=== PATIENT | female | born 1960 | race Caucasian/White ===

== ENCOUNTER 2023-04-29 08:17 | Outpatient (OUT) | payer BC, SELFPAY ==
[2023-04-29 08:43] LABS: Basophils Absolute Auto 0.1 10^3/uL (0.0-0.1); Basophils Percent Auto 0.7 % (0.2-2.0); Eosinophils Absolute Auto 0.3 10^3/uL (0.0-0.7); Eosinophils Percent Auto 3.5 % (0.9-7.0); Hematocrit 41.3 % (36.0-48.0); Hemoglobin 13.1 g/dL (12.0-16.0); Immature Granulocytes Abs Auto 0.03 10^3/uL (0.00-0.03); Immature Granulocytes Pct Auto 0.3 % (0.0-0.5); Lymphocytes Absolute Auto 2.1 10^3/uL (1.2-3.8); Mean Corpuscular HGB Conc 31.7 g/dL (29.9-35.2); Mean Corpuscular Hemoglobin 28.3 pg (26.7-34.0); Mean Corpuscular Volume 89.2 fL (81.0-99.0); Mean Platelet Volume 10.4 fL (9.5-13.5); Monocytes Absolute Auto 0.7 10^3/uL (0.3-0.8); Neutrophils Absolute Auto 5.6 10^3/uL (1.4-6.5); Neutrophils Percent Auto 63.5 % (43.0-75.0); Platelet Count 324 10^3/uL (150-450); Red Blood Count 4.63 10^6/uL (4.20-5.40); Red Cell Distribution Width 14.3 % (11.0-15.0); White Blood Count 8.8 10^3/uL (4.0-11.0)
[2023-04-29 10:01] LABS: Estimated Average Glucose 117 mg/dL; Glycohemoglobin A1C 5.7 % (4.5-6.2)
[2023-04-29 11:08] LABS: Alanine Aminotransferase 22 U/L (14-59); Albumin Globulin Ratio 0.8; Albumin Level 3.1 g/dL (3.4-5.0); Alkaline Phosphatase 102 U/L (46-116); Anion Gap 10.6; Aspartate Amino Transferase 11 U/L (15-37); BUN Creatinine Ratio 14.1; Bilirubin Total 0.4 mg/dL (0.2-1.0); Calcium 9.5 mg/dL (8.5-10.1); Carbon Dioxide 29.6 mmol/L (21.0-32.0); Chloride 105 mmol/L (98-107); Chol HDL Ratio 2.9; Cholesterol 217 mg/dL (<=200); Estimated GFR (African America >60 (>=60); Estimated GFR (Non-African Ame >60 (>=60); Free T3 2.19 pg/mL (2.18-3.98); Globulin 4.1 g/dL; Glucose 91 mg/dL (74-106); HDL Cholesterol 75 mg/dL (40-60); Potassium 4.2 mmol/L (3.5-5.1); Sodium 141 mmol/L (136-145); Thyroid Stimulating Hormone 3.259 uIU/mL (0.358-3.740); Total Protein 7.2 g/dL (6.4-8.2); Triglycerides 113 mg/dL (<=150); VLDL CHOLESTEROL 22.6 mg/dL
[2023-04-29 12:36] LABS: Free T4 1.19 ng/dL (0.76-1.46)
== END 2023-04-29 08:18 | disposition home or self-care (01) ==
LOC: LAB 08:17
PROVIDERS: PCP Family Medicine; Visit Provider Family Medicine
DX: Z00.00 Encounter for general adult medical examination without abnormal findings (principal); E03.9 Hypothyroidism, unspecified
CPT/HCPCS: 36415; 80053; 80061; 83036; 84439; 84443; 84481; 85025

== ENCOUNTER 2023-08-16 15:02 | Outpatient (OUT) | payer OTHER, SELFPAY ==
--- OUTSIDE RECORDS SUMMARY | 2023-08-16 15:20 | XMS_ITS | CCD ---
Author Organization [facility] Care Team Providers Care Pipe Finishing Supervisor Name Role Phone DR ANNIE MENJIVAR Primary Care Unavailable OTTO, DR VALENCIA Admitting Unavailable OTTO, DR VALENCIA Attending Unavailable OTTO, DR VALENCIA Consulting Unavailable OTTO, DR VALENCIA Primary Care Unavailable OTTO, DR VALENCIA Admitting Unavailable OTTO, DR VALENCIA Attending Unavailable WEST, DR ALAN Solis Consulting Unavailable OTTO, DR VALENCIA Primary Care Unavailable OTTO, DR VALENCIA Admitting Unavailable OTTO, DR VALENCIA Attending Unavailable Annie Menjivar MD Primary Care Provider Annie Menjivar MD Primary Care Provider [phone] Annie Menjivar MD Primary Care Provider Unknown, Referring Provider Unavailable Unav ailable Unavailable Unavailable Dr. Carie Negron Referring Unavaila ble Dr. Carie Negron Attending Unavaila ble UNKNOWN, PCP Primary Care Unavailable ANNIE MENJIVAR Primary Care Unavailable ANNIE MENJIVAR Primary Care Unavailable ALIS RODRIGUEZ Attending Unavailable ANNIE MENJIVAR Primary Care Unavailable TAYLER BA Attending Unava ilable ANNIE MENJIVAR Primary Care Unavailable TAYLER BA Referring Unava ilable Annie Menjivar MD Primary Care Provider [phone] Carie Negron MD Unavailable [phone] CARIE NEGRON Attending Unavailable ANNIE MENJIVAR Primary Care Unavailable Allergies Allergy Classification Reported Allergen(s) Allergy Type Date of Onset Reaction(s) Facility (19 sources) Penicillins; Translations: [PENICILLINS] Drug Allergy 03-03-2012 Rash [facility] (1 source) Penicillins; Translations: [Penicillins] Allergy to drug (finding) Rash -[facility] DO Work Phone: Medications Current Medications Medication Drug Class(es) Dates Sig (Normalized) Sig (Original) apixaban 5 mg oral tablet (19 sources) Factor Xa Inhibitor Start: 07-19-2023 End: 07-18-2024 take 1 tablet by mouth twice daily apixaban (Eliquis) 5 mg tablet Indications: Persistent atrial fibrillation (CMS/HCC) Take 1 tablet (5 mg) by mouth 2 times a day. 180 tablet 3 07/19/2023 07/18/2024 Active Start: 07-02-2022 End: 07-19-2023 take 1 tablet by mouth twice daily apixaban (ELIQUIS) 5 mg tab(s) Indications: High risk medication use , Persistent atrial fibrillation (HCC) , Atrial flutter, unspecified type (HCC) Take 1 tablet by mouth twice daily. 180 tablet 3 07/13/2022 Active Comment on above: Take 1 tablet by krys th twice daily. calcium acetate (17 sources) take 1200 mg by mout h once daily CALCIUM ACETATE ORAL Take 1,200 mg by mouth once daily. 0 Active CALCIUM ACETATE ORAL Take by mouth. 0 Active Comment on above: Take by mouth. estradiol 1 mg oral tablet (18 sources) Estrogen take 1 tablet by mouth once daily estradiol (Estrace) 1 mg tablet Take 1 tablet (1 mg) by mouth once daily. 0 Active Comment on above: Take 1 mg by mouth o nce daily. flecainide acetate 150 mg oral tablet (20 sources) Antiarrhythmic Start: End: take 1 tablet by mouth twice daily flecainide (Tambocor) 150 mg tablet Indications: Persistent atrial fibrillation (CMS/HCC) Take 1 tablet (150 mg) by mouth 2 times a day. 180 tablet 3 07/19/2023 07/18/2024 Active Start: 07-13-2022 take 1 tablet by krys th twice daily flecainide (TAMBOCOR) 100 mg tablet Indications: Persistent atrial fibrillation (HCC) Take 1 tablet by mouth twice daily. 180 tablet 3 07/13/2022 Active Start: 05-14-2021 End: 07-19-2023 flecainide (TAMBOCOR) 150 mg tablet Indications: Persistent atrial fibrillation (HCC) TAKE 1 TABLET TWICE A DAY 180 tablet 3 04/27/2022 Active Start: 09-23-2020 End: 05-14-2021 take 1 tablet by mouth twice daily flecainide (TAMBOCOR) 100 mg tablet Indications: Persistent atrial fibrillation (HCC) Take 1 tablet by mouth twice daily. 180 tablet 3 09/23/2020 05/14/2021 Discontinued take 1 tablet by krys th once daily Flecainide Acetate 150 MG Oral Tablet TAKE 1 TABLET EVERY 12 HOURS DAILY. Quantity: 180 Refills: 3 Ordered: 30-Dec-2022 Luz Maria SANCHEZ, Carie Active Comment on above: Take 1 tablet by krys th twice daily. TAKE 1 TABLET TWICE A DAY levothyroxine sodium 0.1 mg oral tablet (20 sources) l-Thyroxine Start: End: 4 take 1 tablet by mouth once daily, then take 0.5 tablet by mouth every week, then take 7.5 tablets by mouth every week levothyroxine (SYNTHROID) 100 mcg tablet Indications: Other specified hypothyroidism Take 1 tablet by mouth once daily. Plus an extra half tablet once a week (so total 7.5 tablets per week) 96 tablet 3 04/15/2023 04/14/2024 Active Start: 12-25-2020 End: 04-17-2022 take 1 tablet by mouth once daily, then take 0.5 tablet by mouth every week, then take 7.5 tablets by mouth every week levothyroxine (SYNTHROID) 100 mcg tablet Indications: Other specified hypothyroidism Take 1 tablet by mouth once daily. Plus an extra half tablet once a week (so total 7.5 tablets per week) 96 tablet 3 04/17/2021 Active levothyroxine (S ynthroid, Levoxyl) 150 mcg tablet Take 1 tablet (150 mcg) by mouth. On sundays 0 Active Comment on above: Take 1 tablet by krys th once daily. Plus an extra half tablet once a week (so total 7.5 tablets per week) Take 1 tablet by krys th once daily. multivitamin tablet (1 source) take 1 tablet by mouth once daily multivitamin tablet Take 1 tablet by mouth once daily. 0 Active Completed/Discontinued Medications Medication Drug Class(es) Dates Sig (Normalized) Sig (Original) atenolol 25 mg oral tablet (19 sources) beta-Adrenergic Wendy Start: 12-30-2022 take 1 tablet by mouth once daily Atenolol 25 MG Oral Tablet TAKE 1 TABLET DAILY. Quantity: 90 Refills: 3 Ordered: 30-Dec-2022 Carie Negron MD Start : 30-Dec-2022 Active dose decreased Start: 03-04-2021 End: 04-27-2022 atenolol (TENORMIN) 25 mg ta blet Indications: Palpitations TAKE 1 TABLET TWICE A DAY 180 tablet 3 04/27/2022 Active take 0.5 tablet by m out once daily atenolol (Tenormin) 25 mg tablet Take 0.5 tablets (12.5 mg) by mouth once daily. 0 Active Comment on above: Take 1 tablet by krys th twice daily. TAKE 1 TABLET TWICE A DAY Calcium 1537-3670 MG-UNIT CHEW (1 source) Calcium 1200-100 0 MG-UNIT CHEW Take 1 tablet daily Quantity: 0 Refills: 0 Ordered: 30-Dec-2022 DO Active cranberry fruit extract (CRANBERRY EXTRACT ORAL) (16 sources) cranberry fruit extract (CRANBERRY EXTRACT ORAL) Take by mouth. 0 Active Comment on above: Take by mouth. glucosamine HCl/chondroitin melendrez (GLUCOSAMINE-CHONDROIT IN ORAL) (16 sources) take 1 tablet by mouth once daily glucosamine HCl/chondroitin melendrez (GLUCOSAMINE-CHONDROI TIN ORAL) Take 1 tablet by mouth once daily. 0 Active Comment on above: Take 1 tablet by krys th once daily. iron bis-glycinat/vit C/FA/B12 (GENTLE IRON ORAL) (16 sources) iron bis-glycina t/vit C/FA/B12 (GENTLE IRON ORAL) Take by mouth. 0 Active Comment on above: Take by mouth. lactobacillus acidophilus [id number] unt oral capsule (16 sources) take 1 capsule by mouth once daily Lactobacillus acidophilus (PROBIOTIC) 10 billion cell cap Take 1 capsule by mouth once daily. 0 Active Comment on above: Take 1 capsule by mo [facility] once daily. Magnesium (16 sources) take 400 mg by mouth once daily MAGNESIUM ORAL Take 400 mg by mouth once daily. 0 Active Comment on above: Take 400 mg by mouth once daily. Multi Vitamin TABS (1 source) Multi Vitamin TA BS TAKE 1 TABLET DAILY. Quantity: 0 Refills: 0 Ordered: 30-Dec-2022 DO Active Probiotic CAPS (1 source) Probiotic CAPS T KIMMIE 1 CAPSULE Daily Quantity: 0 Refills: 0 Ordered: 30-Dec-2022 DO Active rivaroxaban 20 mg oral tablet (9 sources) Factor Xa Inhibitor Start: 1 End: 2 take 1 tablet by mouth once daily rivaroxaban (XARELTO) 20 mg tablet Indications: Persistent atrial fibrillation (HCC) Take 1 tablet by mouth once daily. 30 tablet 3 05/14/2021 Active Comment on above: Take 1 tablet by krys once daily. saccharomyces boulardii 250 mg oral capsule (1 source) End: 4 take 1 capsule by mouth once daily saccharomyces boulardii (Florastor) 250 mg capsule Take 1 capsule by mouth once daily. 0 07/19/2023 Discontinued (Therapy completed) Vitamin B Complex (16 sources) vitamin B comple x (B COMPLEX ORAL) Take by mouth. 0 Active Comment on above: Take by mouth. Zinc (16 sources) take 50 mg by mouth once daily ZINC ORAL Take 50 mg by mouth once daily. 0 Active Comment on above: Take 50 mg by mouth once daily. Problems Active Problems Problem Classification Problem Date Documented Da te Episodic/Chronic Cardiac dysrhythmias (10 sources) Persistent atrial fibrillation; Translations: [Other persistent atrial fibrillation] Onset: 01-21-2023 Resolved: 07-19-2023 Chronic Cardiac dysrhythmias (19 sources) Palpitations; Translations: [Palpitations] Onset: 02-27-2019 02-27-2019 Episodic Other aftercare (1 source) Patient encounter status; Translations: [Encounter for therapeutic drug level monitoring] Episodic Other aftercare (2 sources) Taking high risk medication; Translations: [Other halfway (current) drug therapy] Episodic Other aftercare (3 sources) Drug therapy finding; Translations: [Long-term (current) use of anticoagulants] Onset: 01-21-2023 07-19-2023 Episodic Other aftercare (2 sources) bed bug exterminator (current) use of anticoagulants; Translations: [bed bug exterminator (current) use of anticoagulants] Onset: 01-21-2023 Episodic Other nutritional; endocrine; and metabolic disorders (16 sources) Obese class I; Translations: [Obesity, unspecified] Onset: 02-27-2019 02-27-2019 Chronic Other nutritional; endocrine; and metabolic disorders (2 sources) Body mass index 30+ - obesity; Translations: [Body mass index (BMI) 37.0-37.9, adult] Onset: 07-19-2023 07-19-2023 Chronic Other nutritional; endocrine; and metabolic disorders (2 sources) Body mass index (BMI) 37.0-37.9, adult; Translations: [Body mass index (BMI) 37.0-37.9, adult] Onset: 07-19-2023 Chronic Residual codes; unclassified (2 sources) Sleep apnea; Translations: [Unspecified sleep apnea] Onset: 01-21-2023 01-21-2023 Chronic Residual codes; unclassified (1 source) Obstructive sleep apnea syndrome; Translations: [Obstructive sleep apnea (adult) (pediatric)] 07-19-2023 Chronic Residual codes; unclassified (2 sources) Obstructive sleep apnea (adult) (pediatric); Translations: [Obstructive sleep apnea (adult) (pediatric)] Onset: 01-21-2023 Chronic Residual codes; unclassified (2 sources) Never smoked tobacco; Translations: [Other specified health status] Onset: 07-19-2023 07-19-2023 Episodic Residual codes; unclassified (2 sources) Other specified health status; Translations: [Other specified health status] Onset: 07-19-2023 Episodic Thyroid disorders (3 sources) Hypothyroidism; Translations: [Other specified hypothyroidism] Onset: 07-09-2022 Chronic Unclassified (3 sources) Other persistent atrial fibrillation; Translations: [Persistent atrial fibrillation (HCC)] Onset: 07-09-2022 Past or Other Problems Problem Classification Problem Date Documented Da te Episodic/Chronic Nonspecific chest pain (16 sources) Precordial pain; Translations: [Precordial pain] Onset: 02-27-2019 02-27-2019 Episodic Other aftercare (1 source) Other halfway (current) drug therapy; Translations: [High risk medication use] Onset: 07-09-2022 Episodic Other lower respiratory disease (4 sources) Cough; Translations: [COUGH] Onset: 12-09-2020 Episodic Other nutritional; endocrine; and metabolic disorders (2 sources) Obesity; Translations: [Obesity, unspecified] Onset: 01-21-2023 Resolved: 07-19-2023 07-19-2023 Chronic Unclassified (1 source) Never smoked tobacco; Translations: [Never a smoker] Results Test Name Value Interpretation Reference Range Facility ECG 12 [place] 07-19-2023 Sinus bradycardia wi th heart rate of 54 [facility] Work Phone: CNPNon 02-28-2023 CNPN Telephone (HEMAMN) NATALIE,ESE Elise ([id number]) 1960 F BMD Date Time Provider Department 02/28/23 DAMARI HERNANDEZ HEMAMN During your visit today, we recorded the following information about you: Damari Hernandez RN 02/28/2023 10:40 AM Signed Called patient to discuss tissue typing. She did not answer, Left message with contact information for her to return call . Damari Hernandez RN Allergies As of Date: 02/28/2023 Noted Allergy Reaction PENICILLINS 03/03/2012 2 - Rash Date Reviewed: 04/15/2022 Reviewed by: Rohit Anguiano, CT - Fully Assessed Prescriptions as of 02/28/2023 - flecainide (TAMBOCOR) 100 mg tablet Take 1 tablet by mouth twice daily. - apixaban (ELIQUIS) 5 mg tab(s) Take 1 tablet by mouth twice daily. - apixaban (ELIQUIS) 5 mg tab(s) - levothyroxine (SYNTHROID) 100 mcg tablet Take 1 tablet by mouth once daily. Plus an extra half tablet once a week (so total 7.5 tablets per week) - atenolol (TENORMIN) 25 mg tablet TAKE 1 TABLET TWICE A DAY - Lactobacillus acidophilus (PROBIOTIC) 10 billion cell cap Take 1 capsule by mouth once daily. - ZINC ORAL Take 50 mg by mouth once daily. - MAGNESIUM ORAL Take 400 mg by mouth once daily. - glucosamine HCl/chondroitin melendrez (GLUCOSAMINE-CHONDROIT IN ORAL) Take 1 tablet by mouth once daily. - vitamin B complex (B COMPLEX ORAL) Take by mouth. - CALCIUM ACETATE ORAL Take by mouth. - cranberry fruit extract (CRANBERRY EXTRACT ORAL) Take by mouth. - iron bis-glycinat/vit C/FA/B12 (GENTLE IRON ORAL) Take by mouth. - estradiol (ESTRACE) 1 mg tablet Take 1 mg by mouth once daily. Problem List As Of Date 02/28/2023 Noted Resolved Precordial pain [R07.2] 02/27/2019 Palpitations [R00.2] 02/27/2019 Obesity, Class I, BMI 30-34.9 [E66.9] 02/27/2019 Encounter Status:Closed by DAMARI HERNANDEZ on 02/28/23 [facility] Telephone (HEMAMN) ESE ESTRADA ([id number]) 1960 F BMD Date Time Provider Department 02/28/23 DAMARI HERNANDEZ HEM During your visit today, we recorded the following information about you: Damari Hernandez RN 02/28/2023 11:18 AM Signed Spoke with potential HPC donor,Ese Estrada, by telephone on February 28, 2023. She is willing to have blood drawn to determine HLA match potential for recipient, Dedra Damon. Patient is on flecanide and a blood thinner. Will defer testing as a donor per NMDP guidelines. All questions answered at this time. Ese Estrada was instructed to call Damari Hernandez RN , pager [phone] with any further questions or concerns. Damari Hernandez RN Allergies As of Date: 02/28/2023 Noted Allergy Reaction PENICILLINS 03/03/2012 2 - Rash Date Reviewed: 04/15/2022 Reviewed by: Rohit Anguiano, CT - Fully Assessed Prescriptions as of 02/28/2023 - flecainide (TAMBOCOR) 100 mg tablet Take 1 tablet by mouth twice daily. - apixaban (ELIQUIS) 5 mg tab(s) Take 1 tablet by mouth twice daily. - apixaban (ELIQUIS) 5 mg tab(s) - levothyroxine (SYNTHROID) 100 mcg tablet Take 1 tablet by mouth once daily. Plus an extra half tablet once a week (so total 7.5 tablets per week) - atenolol (TENORMIN) 25 mg tablet TAKE 1 TABLET TWICE A DAY - Lactobacillus acidophilus (PROBIOTIC) 10 billion cell cap Take 1 capsule by mouth once daily. - ZINC ORAL Take 50 mg by mouth once daily. - MAGNESIUM ORAL Take 400 mg by mouth once daily. - glucosamine HCl/chondroitin melendrez (GLUCOSAMINE-CHONDROIT IN ORAL) Take 1 tablet by mouth once daily. - vitamin B complex (B COMPLEX ORAL) Take by mouth. - CALCIUM ACETATE ORAL Take by mouth. - cranberry fruit extract (CRANBERRY EXTRACT ORAL) Take by mouth. - iron bis-glycinat/vit C/FA/B12 (GENTLE IRON ORAL) Take by mouth. - estradiol (ESTRACE) 1 mg tablet Take 1 mg by mouth once daily. Problem List As Of Date 02/28/2023 Noted Resolved Precordial pain [R07.2] 02/27/2019 Palpitations [R00.2] 02/27/2019 Obesity, Class I, BMI 30-34.9 [E66.9] 02/27/2019 Encounter Status:Closed by DAMARI HERNANDEZ on 02/28/23 Normal [facility] BI MAMMOGRAM SCREENING TOMOS YNTHESIS BILATERALon 01-10-2023 BI MAMMOGRAM SCREENING TOMOSYNTHESIS BILATERAL This is a summary report. The complete report is available in the patient's medical record. If you cannot access the medical record, please contact the sending organization for a detailed fax or copy. EXAMINATION: BI MAMMOGRAM SCREENING TOMOSYNTHESIS BILATERAL CLINICAL HISTORY: screening COMPARISON: None available. RESULT: 3-D tomosynthesis imaging of the bilateral breast(s) was performed. Density: Scattered fibroglandular density [2] There are no suspicious masses or asymmetries, areas of architectural distortion or suspicious areas of microcalcifications. IMPRESSION: BIRADS 1 - Negative Recommended follow-up: Routine Screening Mamm Board Certified Radiologists. Accredited by the ACR and FDA. MAMMOGRAPHY IS VERY IMPORTANT TO YOUR HEALTH. THE [place] GUIDELINES RECOMMEND THAT WOMEN 40 YEARS OF AGE AND OLDER SHOULD HAVE A MAMMOGRAM EVERY YEAR. A REMINDER LETTER WILL BE SENT AT THE APPROPRIATE TIME. THIS FACILITY UTILIZES A REMINDER SYSTEM TO ENSURE ALL PATIENTS RECEIVE REMINDER NOTIFICATIONS AT THE APPROPRIATE TIME BASED ON THE RECOMMENDATIONS OF THIS EXAM. THIS INCLUDES REMINDERS FOR ROUTINE SCREENING MAMMOGRAMS, DIAGNOSTIC MAMMOGRAMS IN WHICH THE PATIENT IS ASKED TO RETURN FOR ADDITIONAL VIEWS, OR OTHER BREAST IMAGING INTERVENTIONS WHEN APPROPRIATE. THE PATIENT WILL BE PLACED IN THE APPROPRIATE REMINDER SYSTEM INCLUDING A REMINDER AT THE APPROPRIATE TIME FOR ANY PENDING ADDITIONAL VIEWS. ELECTRONICALLY SIGNED BY: Devin Banerjee MD Normal Not Available Comment on above: Order Comment: Last mammogram 2020 [facility]. Requests order to [facility]. Us or spot compression prn Office Visit (Cardiology)on 12-30-2022 Follow-up visit Diagnoses/Problems Assessed Paroxysmal atrial fibrillation (427.31) (I48.0) Class 2 obesity with body mass index (BMI) of 37.0 to 37.9 in adult (278.00,V85.37) (E66.9,Z68.37) Never a smoker Sleep apnea (780.57) (G47.30) Anticoagulated (V58.61) (Z79.01) Orders Class 2 obesity with body mass index (BMI) of 37.0 to 37.9 in adult Healthy Weight Tips; Status:Complete - Retrospective Authorization; Done: [id number] Some eating tips that can help you lose weight.; Status:Complete - Retrospective Authorization; Done: [id number] Paroxysmal atrial fibrillation Start: Atenolol 25 MG Oral Tablet; TAKE 1 TABLET DAILY IO EKG Electrocardiogram- 12 Lead; Status:Complete; Done: [id number] Renew: Eliquis 5 MG Oral Tablet; Take 1 tablet twice daily Renew: Flecainide Acetate 150 MG Oral Tablet; TAKE 1 TABLET EVERY 12 HOURS DAILY Sleep apnea Adult Sleep Medicine Referral Evaluation and Treatment Evaluate AND Treat Status: Hold For - Scheduling,Retrospecti ve Authorization Requested for: [id number] SocHx: Never a smoker Tobacco Use Screening; Status:Complete; Done: [id number] Unlinked Stop: Atenolol 25 MG Oral Tablet Patient Instructions Please bring all medicines, vitamins, and herbal supplements with you when you come to the office. Prescriptions will not be filled unless you are compliant with your follow up appointments or have a follow up appointment scheduled as per instruction of your physician. Refills should be requested at the time of your visit. Follow up in 6 months home sleep study refills to [facility] Chief Complaint ESE ESTRADA is being seen for an initial evaluation of atrial fibrillation. History of Present Illness Patient is here for cardiovascular evaluation for atrial fibrillation. Patient report history of atrial fibrillation over the last 2 years. She was evaluated at the [facility]. Her noninvasive assessment including an echocardiogram appears reassuring. Patient underwent cardioversion on 2 prior occasion. Her atrial fibrillation was treated with flecainide and low-dose atenolol. She was advised by her shipwright helper at [facility] to increase flecainide temporarily to 150 and then to decrease it back to 100 mg. She had done that over the last 4 months and had 2 episodes of breakthrough arrhythmia. The patient was advised to have an ablation but the patient is reluctant. She has been started recently on anticoagulation. Her CHADS2 vascular score is 1. Patient reports symptoms suspicious of sleep apnea. She is Functional class I. She denies chest pain or lightheadedness. Assessment 1. Persistent recurrent atrial fibrillation treated with flecainide 100 mg twice daily but this was just increased 250 twice daily due to recurrence 2. Mild sinus bradycardia to flecainide and atenolol 3. Obesity 4. Probable sleep apnea based on symptoms 5. No history of coronary artery disease, LV systolic dysfunction or valvular abnormality Plan 1. I advised the patient to continue flecainide 150 twice daily but advised her to reduce atenolol to 25 once daily 2. We discussed at great length the natural history of atrial fibrillation. If continue to have breakthrough arrhythmia next step would be trial of Rythmol or ablation 3. I counseled her regarding the link between atrial fibrillation, obesity and sleep apnea 4. I recommended outpatient sleep evaluation 5. We discussed anticoagulation at length. I told her for the near future we will stay with Eliquis however if she had stable rhythm in the next 3 to 6 months we may consider switching to aspirin considering low CHADS2 vascular score 6 I advised her to notify me change in cardiac status or symptoms Surgical History Problems History of Appendectomy History of Cardioversion History of section 2 Denied: History of Complete colonoscopy History of Hernia repair History of Hysterectomy History of Tonsillectomy History of Uterine nerve ablation Current Meds Medication NameInstruction Atenolol 25 MG Oral TabletTAKE 1 TABLET BY MOUTH twice a DAY Calcium 2410-2885 MG-UNIT CHEWTake 1 tablet daily Eliquis 5 MG Oral TabletTake 1 tablet twice daily Estradiol 1 MG Oral TabletTAKE 1 TABLET DAILY. Flecainide Acetate 150 MG Oral TabletTAKE 1 TABLET EVERY 12 HOURS DAILY. Multi Vitamin TABSTAKE 1 TABLET DAILY. Probiotic CAPSTAKE 1 CAPSULE Daily Synthroid 100 MCG Oral TabletTAKE 1 TABLET DAILY. Synthroid 150 MCG Oral Tablet1 tablet on Sundays Allergies Medication Penicillins Allergy; Rash; Recorded By: Deloris France; 12/30/2022 1:54:02 PM Family History Mother Family history of congestive heart failure (V17.49) (Z82.49) Family history of diabetes mellitus (V18.0) (Z83.3) Family history of hyperthyroidism (V18.19) (Z83.49) Family history of Stroke syndrome Father Family history of lung cancer (V16.1) (Z80.1) Sister Family history of hypothyroidism (V18.19) (Z83.49) Family history of lymphoma (V16.7) (Z80.7) Family (more content not included)... Normal [employer] Tobacco Screening.on 023 Tobacco use status [facility] b) No -[facility] [employer] DO Work Phone: Tobacco Screening. Yes [facility] [employer] DO Work Phone: CNPMarlin 12-24-2022 [facility] Telephone (CARDAV) NATALIE,ESE Elise ([id number]) 1960 F Date Time Provider Department 12/24/22 JOHN WALSH During your visit today, we recorded the following information about you: Kathryn Paul 12/24/2022 10:33 AM Signed ----- Message from ADA Pereira sent at 12/23/2022 2:50 PM EDT ----- Nico afternoon ----- Message ----- From: Tayler Ba MD Sent: 12/23/2022 1:32 PM EDT To: ADA Pereira EPS LAB PROCEDURE REQUEST: Cardioversion AND/or LAUREN PATIENT: Ese Estrada Request Placed by: Tayler Barboza MD Requesting Physician: CT Procedure Physician: Gonzales jeffrey MD Date of Last HANDP? Procedure Requested: DCC Indications / Dx for procedure: Atrial Fibrillation Anticoagulation Status: Eliquis (apixaban) Type of bed needed: 2 HR RECOVERY IN I/O ROOM This upcoming Tuesday with any available provider Kathryn Paul 12/24/2022 10:35 AM Signed Called and scheduled patient for her cardioversion with Dr Walsh for December 27 11:30am arrival time. Patient notified to be npo after midnight and to have a driver medic and report to first floor admitting to register. Follow up scheduled. Lab ordered. Allergies As of Date: 12/24/2022 Noted Allergy Reaction PENICILLINS 03/03/2012 2 - Rash Date Reviewed: 04/15/2022 Reviewed by: Rohit Anguiano CT - Fully Assessed Prescriptions as of 12/24/2022 - flecainide (TAMBOCOR) 100 mg tablet Take 1 tablet by mouth twice daily. - apixaban (ELIQUIS) 5 mg tab(s) Take 1 tablet by mouth twice daily. - apixaban (ELIQUIS) 5 mg tab(s) - levothyroxine (SYNTHROID) 100 mcg tablet Take 1 tablet by mouth once daily. Plus an extra half tablet once a week (so total 7.5 tablets per week) - atenolol (TENORMIN) 25 mg tablet TAKE 1 TABLET TWICE A DAY - Lactobacillus acidophilus (PROBIOTIC) 10 billion cell cap Take 1 capsule by mouth once daily. - ZINC ORAL Take 50 mg by mouth once daily. - MAGNESIUM ORAL Take 400 mg by mouth once daily. - glucosamine HCl/chondroitin melendrez (GLUCOSAMINE-CHONDROIT IN ORAL) Take 1 tablet by mouth once daily. - vitamin B complex (B COMPLEX ORAL) Take by mouth. - CALCIUM ACETATE ORAL Take by mouth. - cranberry fruit extract (CRANBERRY EXTRACT ORAL) Take by mouth. - iron bis-glycinat/vit C/FA/B12 (GENTLE IRON ORAL) Take by mouth. - estradiol (ESTRACE) 1 mg tablet Take 1 mg by mouth once daily. Problem List As Of Date 12/24/2022 Noted Resolved Precordial pain [R07.2] 02/27/2019 Palpitations [R00.2] 02/27/2019 Obesity, Class I, BMI 30-34.9 [E66.9] 02/27/2019 Encounter Status:Closed by KATHRYN PAUL on 12/24/22 [facility] 12-23-2022 GRETAN Telephone (CAEPAV) CLOSE,ANI ([id number]) 1960 F Date Time Provider Department 12/23/22 TAYLER BA During your visit today, we recorded the following information about you: Kathryn Robert, YANETH 12/23/2022 11:43 AM Signed The pt is calling. Pre her cardio mobile she is in A-Fib and she has been since Tuesday. She is symptomatic with it, she can fee her heart racing and has some sob. if she is just sitting it is manageable but when she tried to do anything it seems to ramp up . She takes Flecainide 100 mg one tablet twice a day and Atenolol 25 mg one every evening. She did take an extra Atenolol this morning, states you are aware she normally only takes one every evening although the sig has her taking one pill twice a day. In the past you have had her increase her Flecainide and she normally converts after being on a higher dose. Please advise. You may call her back at her home number and may leave a detailed message. Please do not send the response via my chart. Please route your response back to P [facility] CARD NURSE Kathryn Mccann RN 12/23/2022 4:[address] Markham Please convey following She may take up to 150 mg BID of flecainide. WIll tentatively request cardioverison for Tuesday - if she returns to sinus can cancel. Thanks I called and notified the pt of the above instructions, she will call us back if she converts back to NSR. Allergies As of Date: 12/23/2022 Noted Allergy Reaction PENICILLINS 03/03/2012 2 - Rash Date Reviewed: 04/15/2022 Reviewed by: Rohit Anguiano CT - Fully Assessed Reason for Visit: A-fib [167] Prescriptions as of 01/29/2023 - flecainide (TAMBOCOR) 100 mg tablet Take 1 tablet by mouth twice daily. - apixaban (ELIQUIS) 5 mg tab(s) Take 1 tablet by mouth twice daily. - apixaban (ELIQUIS) 5 mg tab(s) - levothyroxine (SYNTHROID) 100 mcg tablet Take 1 tablet by mouth once daily. Plus an extra half tablet once a week (so total 7.5 tablets per week) - atenolol (TENORMIN) 25 mg tablet TAKE 1 TABLET TWICE A DAY - Lactobacillus acidophilus (PROBIOTIC) 10 billion cell cap Take 1 capsule by mouth once daily. - ZINC ORAL Take 50 mg by mouth once daily. - MAGNESIUM ORAL Take 400 mg by mouth once daily. - glucosamine HCl/chondroitin melendrez (GLUCOSAMINE-CHONDROIT IN ORAL) Take 1 tablet by mouth once daily. - vitamin B complex (B COMPLEX ORAL) Take by mouth. - CALCIUM ACETATE ORAL Take by mouth. - cranberry fruit extract (CRANBERRY EXTRACT ORAL) Take by mouth. - iron bis-glycinat/vit C/FA/B12 (GENTLE IRON ORAL) Take by mouth. - estradiol (ESTRACE) 1 mg tablet Take 1 mg by mouth once daily. Problem List As Of Date 12/23/2022 Noted Resolved Precordial pain [R07.2] 02/27/2019 Palpitations [R00.2] 02/27/2019 Obesity, Class I, BMI 30-34.9 [E66.9] 02/27/2019 Encounter Status:Closed by K[facility]HRYN ROBERT [facility] C[facility]N Telephone (CARDAV) CLOSE,ESE Elise ([id number]) 1960 F Date Time Provider Department 07/29/22 TAYLER BA During your visit today, we recorded the following information about you: Neelam Meneses 07/29/2022 11:57 AM Signed Patient calling stating that she needed to cancel her upcoming follow up appt due to watching her grandkids. She stated that she was not aware of this appt. She stated that she did not have the procedure and wonders if it was in relation for follow up from that. She would like to be advised if she should still make a follow up appt Please advise Juarez Mena RN 07/29/2022 1:59 PM Signed Appt canceled Allergies As of Date: 07/29/2022 Noted Allergy Reaction PENICILLINS 03/03/2012 2 - Rash Date Reviewed: 04/15/2022 Reviewed by: Rohit Anguiano CT - Fully Assessed Reason for Visit: Patient Question [2927] Prescriptions as of 07/29/2022 - flecainide (TAMBOCOR) 100 mg tablet Take 1 tablet by mouth twice daily. - apixaban (ELIQUIS) 5 mg tab(s) Take 1 tablet by mouth twice daily. - apixaban (ELIQUIS) 5 mg tab(s) - levothyroxine (SYNTHROID) 100 mcg tablet Take 1 tablet by mouth once daily. Plus an extra half tablet once a week (so total 7.5 tablets per week) - atenolol (TENORMIN) 25 mg tablet TAKE 1 TABLET TWICE A DAY - Lactobacillus acidophilus (PROBIOTIC) 10 billion cell cap Take 1 capsule by mouth once daily. - ZINC ORAL Take 50 mg by mouth once daily. - MAGNESIUM ORAL Take 400 mg by mouth once daily. - glucosamine HCl/chondroitin melendrez (GLUCOSAMINE-CHONDROIT IN ORAL) Take 1 tablet by mouth once daily. - vitamin B complex (B COMPLEX ORAL) Take by mouth. - CALCIUM ACETATE ORAL Take by mouth. - cranberry fruit extract (CRANBERRY EXTRACT ORAL) Take by mouth. - iron bis-glycinat/vit C/FA/B12 (GENTLE IRON ORAL) Take by mouth. - estradiol (ESTRACE) 1 mg tablet Take 1 mg by mouth once daily. Problem List As Of Date 07/29/2022 Noted Resolved Precordial pain [R07.2] 02/27/2019 Palpitations [R00.2] 02/27/2019 Obesity, Class I, BMI 30-34.9 [E66.9] 02/27/2019 Encounter Status:Closed by JUAREZ MENA on 07/29/22 [facility] Jay 07-14-2022 HARSH Telephone (CARDAV) CLOSE,ESE Elise ([id number]) 1960 F Date Time Provider Department 07/14/22 TAYLER BA During your visit today, we recorded the following information about you: Kathryn Garrett Pss 07/14/2022 2:46 PM Signed HR just getting out of shower is 180.Wanting to know if she could get a cardioversion soon? Please advise Edelmira Ordonez APRN.PATIENT SAFETY ATTENDANT 07/14/2022 4:54 PM Signed I reviewed the message Recommendation: We have given instructions with previous phone call Patient refuses a cardioversion from previous notes If she willing to have then please schedule thank you Edelmira Ordonez APRN.GRETA Gauthier RN 07/16/2022 2:47 PM Signed Pt having DCC today. Will close encounter Allergies As of Date: 07/14/2022 Noted Allergy Reaction PENICILLINS 03/03/2012 2 - Rash Date Reviewed: 04/15/2022 Reviewed by: KATHY Florez - Fully Assessed Reason for Visit: Appointment [186] Primary Visit Diagnosis:Paroxysmal atrial fibrillation (HCC) [I48.0 (ICD-10-CM)] [I48.0] Prescriptions as of 07/16/2022 - flecainide (TAMBOCOR) 100 mg tablet Take 1 tablet by mouth twice daily. - apixaban (ELIQUIS) 5 mg tab(s) Take 1 tablet by mouth twice daily. - apixaban (ELIQUIS) 5 mg tab(s) - levothyroxine (SYNTHROID) 100 mcg tablet Take 1 tablet by mouth once daily. Plus an extra half tablet once a week (so total 7.5 tablets per week) - atenolol (TENORMIN) 25 mg tablet TAKE 1 TABLET TWICE A DAY - Lactobacillus acidophilus (PROBIOTIC) 10 billion cell cap Take 1 capsule by mouth once daily. - ZINC ORAL Take 50 mg by mouth once daily. - MAGNESIUM ORAL Take 400 mg by mouth once daily. - glucosamine HCl/chondroitin melendrez (GLUCOSAMINE-CHONDROIT IN ORAL) Take 1 tablet by mouth once daily. - vitamin B complex (B COMPLEX ORAL) Take by mouth. - CALCIUM ACETATE ORAL Take by mouth. - cranberry fruit extract (CRANBERRY EXTRACT ORAL) Take by mouth. - iron bis-glycinat/vit C/FA/B12 (GENTLE IRON ORAL) Take by mouth. - estradiol (ESTRACE) 1 mg tablet Take 1 mg by mouth once daily. Problem List As Of Date 07/14/2022 Noted Resolved Precordial pain [R07.2] 02/27/2019 Palpitations [R00.2] 02/27/2019 Obesity, Class I, BMI 30-34.9 [E66.9] 02/27/2019 Encounter Status:Closed by KATHRYN PAUL on 07/15/22 [facility] Jay 07-12-2022 GRETAN Telephone (CARDAV) CLOSE,ESE Elise ([id number]) 1960 F Date Time Provider Department 07/12/22 TAYLER BA During your visit today, we recorded the following information about you: Kathryn Garrett Pss 07/12/2022 2:48 PM Signed Patient has a [employer] machine and has been taking the atenolol twice a day since last Tuesday. She has been in rhytum and feeling good. Allergies As of Date: 07/12/2022 Noted Allergy Reaction PENICILLINS 03/03/2012 2 - Rash Date Reviewed: 04/15/2022 Reviewed by: KATHY Florez - Fully Assessed Reason for Visit: Patient Question [3997] Prescriptions as of 07/12/2022 - apixaban (ELIQUIS) 5 mg tab(s) - levothyroxine (SYNTHROID) 100 mcg tablet Take 1 tablet by mouth once daily. Plus an extra half tablet once a week (so total 7.5 tablets per week) - atenolol (TENORMIN) 25 mg tablet TAKE 1 TABLET TWICE A DAY - flecainide (TAMBOCOR) 150 mg tablet TAKE 1 TABLET TWICE A DAY - rivaroxaban (XARELTO) 20 mg tablet Take 1 tablet by mouth once daily. - Lactobacillus acidophilus (PROBIOTIC) 10 billion cell cap Take 1 capsule by mouth once daily. - ZINC ORAL Take 50 mg by mouth once daily. - MAGNESIUM ORAL Take 400 mg by mouth once daily. - glucosamine HCl/chondroitin melendrez (GLUCOSAMINE-CHONDROIT IN ORAL) Take 1 tablet by mouth once daily. - vitamin B complex (B COMPLEX ORAL) Take by mouth. - CALCIUM ACETATE ORAL Take by mouth. - cranberry fruit extract (CRANBERRY EXTRACT ORAL) Take by mouth. - iron bis-glycinat/vit C/FA/B12 (GENTLE IRON ORAL) Take by mouth. - estradiol (ESTRACE) 1 mg tablet Take 1 mg by mouth once daily. Problem List As Of Date 07/12/2022 Noted Resolved Precordial pain [R07.2] 02/27/2019 Palpitations [R00.2] 02/27/2019 Obesity, Class I, BMI 30-34.9 [E66.9] 02/27/2019 Encounter Status:[facility] Nurse Visit (HEMASA) CLOSE,ESE Elise ([id number]) 1960 F Date Time Provider Department 07/09/22 3:00 PM JENNIFER NURSE IKE GARCIA During your visit today, we recorded the following information about you: Dm Schaeffer 07/09/2022 3:44 PM Signed EKG performed as ordered. Electron[facility] sent to [facility] main. Placed paper copy in scan folder. Dm Schaeffer Referring Provider: SELF [200] Allergies As of Date: 07/09/2022 Noted Allergy Reaction PENICILLINS 03/03/2012 2 - Rash Date Reviewed: 04/15/2022 Reviewed by: KATHY Florez - Fully Assessed Primary Visit Diagnosis:High risk medication use [Z79.899] Other Visit Diagnosis:Persistent atrial fibrillation (HCC) [I48.19] Order(s):ECG COMPLETE [ECG01] Order #: [id number] Prescriptions as of 07/09/2022 - apixaban (ELIQUIS) 5 mg tab(s) - levothyroxine (SYNTHROID) 100 mcg tablet Take 1 tablet by mouth once daily. Plus an extra half tablet once a week (so total 7.5 tablets per week) - atenolol (TENORMIN) 25 mg tablet TAKE 1 TABLET TWICE A DAY - flecainide (TAMBOCOR) 150 mg tablet TAKE 1 TABLET TWICE A DAY - rivaroxaban (XARELTO) 20 mg tablet Take 1 tablet by mouth once daily. - Lactobacillus acidophilus (PROBIOTIC) 10 billion cell cap Take 1 capsule by mouth once daily. - ZINC ORAL Take 50 mg by mouth once daily. - MAGNESIUM ORAL Take 400 mg by mouth once daily. - glucosamine HCl/chondroitin melendrez (GLUCOSAMINE-CHONDROIT IN ORAL) Take 1 tablet by mouth once daily. - vitamin B complex (B COMPLEX ORAL) Take by mouth. - CALCIUM ACETATE ORAL Take by mouth. - cranberry fruit extract (CRANBERRY EXTRACT ORAL) Take by mouth. - iron bis-glycinat/vit C/FA/B12 (GENTLE IRON ORAL) Take by mouth. - estradiol (ESTRACE) 1 mg tablet Take 1 mg by mouth once daily. Problem List As Of Date 07/09/2022 Noted Resolved Precordial pain [R07.2] 02/27/2019 Palpitations [R00.2] 02/27/2019 Obesity, Class I, BMI 30-34.9 [E66.9] 02/27/2019 Visit Notes: >> Dm Schaeffer Fri Jul 09, 2022 3:43 PM Status: Signed EKG performed as ordered. Electronically sent to [facility] main. Placed paper copy in scan folder. Dm Schaeffer Encounter Status:Closed by DM [facility]AEFFER [facility] Telephone (INTMLN) ESE ESTRADA ([id number]) 1960 F Date Time Provider Department 07/09/22 TAYLER BAKaro During your visit today, we recorded the following information about you: Zora New 07/09/2022 11:27 AM Signed Ese Estrada called today. : 1960 Allergies: Penicillins (home) [phone] (cell) Reason for call: Patient is calling in asking for a EKG order to be placed so that she can have it done at the [facility]. Please call her when placed. Patient last appointment: Visit date not found The patients preferred pharmacy has been captured for this encounter? no Zora Landa MA 07/09/2022 11:45 AM Signed Order pended Dr. Markham patient on tambocor Edelmira Ordonez APRN.GRETA 07/11/2022 12:26 PM Signed Reviewed the message ECG ordered placed already and completed illustrates atrial flutter I suspect she will be scheduled for a cardioversion Thank you Edelmira Ordonez APRN.GRETA Ordonez APRN.GRETA 07/12/2022 7:30 AM Signed Tayler Barboza MD You; Avw Card Nurse 16 hours ago (3:03 PM) Agree Please call pt and notify that her ECG shows AFL. Advise: 1. Cardioversion - if agrees and confirms no missed doses of anticoagulant then please forward request for DCC only via Kathryn/Cathy 2. Increase flecainide 100 mg BID, continue atenolol current dose 3. Consider catheter ablation (earliest available is October) Thx C please see recommendations above I will also send message to hardwood sawyer unclear how patient takes flecainide 50mg BID out of a flecainide 150mg tablet. Please clarify with patient first what dose of tablet she has of flecainide thank you Edelmira Ordonez APRN.GRETA Cool RN 07/13/2022 10:29 AM Addendum Called and spoke to patient per below. She is not interested in having cardioversion nor ablation, and is asking if she can try to control her rhythm using medication only. She said she was supposed to have an ablation back in 2020 and it was cancelled with [facility] and her bed was needed. She said it left her feeling uneasy about having it. She said since Tuesday she has started taking atenolol BID (as you had recently reduced to daily but she was nervous about how high her heart rate was and she figured it was safe to take BID because she had been on it this way previously. She knew it would be difficult to reach anyone in the office as it was the weekend. She said she had some leftover 100 mg flecainide tablets so that is how she has been taking 50 mg BID, however she is running low so if moving forward she has to take 100 BID she is asking for a refill on this. She also says she is back on her Eliquis, and running low on it. She assumes she needs this. She would also like a refill on it. She said her [employer] mobile showed her to have tachycardia when she experienced a couple of episodes (during exertion) of SOB/LH where she had to sit down. She wonders if it would show flutter if she was in it. She uses her [employer] mobile daily and is going to give us an update in a week or two via [employer] as to how she is doing on this new dose of flecainide. She will continue with atenolol BID. Mariposa Cool RN 07/13/2022 10:35 AM Signed Addended by: MARIPOSA COOL on: 07/13/2022 10:35 AM Modules accepted: Anthony Crain APRN.CNP 07/13/2022 10:58 AM Signed She needs an appointment in 1-2 weeks to review how she is doing on this and discuss plan of care moving forward. If she does not want to pursue DCCV or PVI and if flecainide doesn't chemically convert to SR, then we will need to discuss stopping this. BRAXTON Rosario APRN.CNP 07/13/2022 10:58 AM Signed Addended by: LEXUS CRAIN on: 07/13/2022 10:58 AM Modules accepted: Anthony Merchant 07/15/2022 11:22 AM Signed Per Kathryn Pratt, patient has been scheduled for a Cardioversion with Dr. Walsh on 07/16. (Per Kathryn Prtat, No need for Schedulers to contact patient regarding an appointment at this time). Allergies As of Date: 07/09/2022 Noted Allergy Reaction PENICILLINS 03/03/2012 2 - Rash Date Reviewed: 04/15/2022 Reviewed by: KATHY Florez - Fully Assessed Reason for Visit: Orders [681] Results [95] Primary Visit Diagnosis:Atrial flutter, unspecified type (HCC) [I48.92 (ICD-10-CM)] [I48.92] Other Visit Diagnoses:High risk medication use [Z79.899] Persistent atrial fibrillation (HCC) [I48.19] Order(s):ECG COMPLETE [ECG01] Order #: [id number] FUTURE flecainide (TAMBOCOR) 100 mg tabletTake 1 tablet by mouth twice daily.Disp: 180 tabletRfl: 3 apixaban (ELIQUIS) 5 mg tab(s)Take 1 tablet by mouth twice daily.Disp: 180 tabletRfl: 3 Prescriptions as of 07/15/2022 - flecainide (TAMBOCOR) 100 mg tablet Take 1 tablet by mouth twice daily. - apixaban (ELIQUIS) 5 mg tab(s) Take (more content not included)... Normal [facility] [id number] 07-09-2022 ECG01 Ventricular Rate : 7 7 BPM Atrial Rate : 231 BPM QRS Duration : 122 ms Q-T Interval : 462 ms QTC Calculation(Bazett) : 522 ms Calculated P Gray : -168 degrees Calculated R Gray : -80 degrees Calculated T Gray : -11 degrees ATRIAL FLUTTER WITH 3:1 A-V CONDUCTION LEFT AXIS DEVIATION NONSPECIFIC INTRAVENTRICULAR CONDUCTION DELAY NONSPECIFIC ST AND T WAVE ABNORMALITY ABNORMAL ECG Confirmed by ABDULAZIZ PARRY MD ([id number]) on 07/14/2022 10:01:37 AM NAME : ESE ESTRADA PID : [id number] : 1960 Gender : Female Race : ORD : Procedure Date : Jul 09 2022 16:42:12 Edit Date : Jul 14 2022 10:01:39 Diagnosis: ATRIAL FLUTTER WITH 3:1 A-V CONDUCTION LEFT AXIS DEVIATION NONSPECIFIC INTRAVENTRICULAR CONDUCTION DELAY NONSPECIFIC ST AND T WAVE ABNORMALITY ABNORMAL ECG Confirmed by ABDULAZIZ PARRY MD ([id number]) on 07/14/2022 10:01:37 AM Test Reason : Location : 539 : [facility] Overread By : ABDULAZIZ PARRY MD Edited By : ABDULAZIZ PARRY MD Referred By : TAYLER BARBOZA Acquired by : Chapis CHEN [facility] T4 Free SerPl-mCncon 023 Free T4 [Mass/Vol] 1.4 ng/dL Normal 0.9-1.7 [facility] Comment on above: Order Comment: Speci men Type: BLOOD SPECIMENOrdering Facility: [facility] Address: [address] [place] [id number] Performed By: #### 3 024-7, 3016-3 ####[facility] [id number] [address] [place] TSH SerPl-aCncon 07-09-2022 TSH Qn 1.020 m[IU]/L Normal 0.270-4.200 [facility] Comment on above: Order Comment: Speci men Type: BLOOD SPECIMENOrdering Facility: [facility] Address: [address] [place] [address] Performed By: #### 3 024-7, 3016-3 ####[facility] [id number] [address] OF [facility] ECG COMPLETEon 04-16-2022 Atrial Rate 58 BPM [facility] Calculated P Gray 74 degrees [facility] Calculated R Gray 138 degrees [facility] Calculated T Gray 71 degrees [facility] P-R Interval 254 ms [facility] QRS Duration 100 ms [facility] QT Interval 412 ms [facility] QTC Calculation (Bazett) 404 ms [facility] Ventricular Rate 58 BPM [facility] CNOVon 04-15-2022 CN[facility] Office Visit (CAEPAV ) NATALIEESE Elise ([id number]) 1960 F Date Time Provider Department 04/15/22 1:00 PM TAYLER BA During your visit today, we recorded the following information about you: Pulse Blood pressure Weight Height 58/minute 148/68 95.7 kg 1.6 m Tayler Barboza MD 04/23/2022 2:02 PM Signed [facility] Department of Cardiovascular Medicine SECTION OF CARDIAC PACING and ELECTROPHYSIOLOGY OUTPATIENT VISIT DATE May 14, 2021 OUTPATIENT VISIT TYPE ESTABLISHED PRIMARY CARE PHYSICIAN: Annie Menjivar MD [address] [place] [address] REFERRING PHYSICIAN: Tayler Barboza [id number] [address] [facility] [id number] CHIEF COMPLAINT: Previously persistent atrial fibrillation; flecainide therapy with paroxysmal course HISTORY OF PRESENT ILLNESS: Ms. Estrada is a year old female who presents today for follow-up visit/ She continues to report minimal burden of atrial fibrillation, as gauged by symptoms as well as monitoring using her cardia mobile device. She continues to take flecainide 150 mg and atenolol 25 mg twice daily. States there was a 1 week. When she inadvertently missed dosing for both of these medications. States she felt quite well during that time, and is wondering if we can taper back on the dosages. She denies chest pain, shortness of breath, orthopnea, cough, edema, palpitations, PND, lightheadedness or syncope. PAST CARDIAC HISTORY: PAST MEDICAL HISTORY Diagnosis Date Hypothyroidism Mitral valve prolapse rheumatic fever as child PAST SURGICAL HISTORY Procedure Laterality Date APPENDECTOMY PAST SURGICAL HISTORY OF 2 c-sections TONSILLECTOMY HX SOCIAL HISTORY Social History Tobacco Use Smoking status: Never Smokeless tobacco: Never Substance Use Topics Alcohol use: No Drug use: No FAMILY HISTORY Problem Relation Age of Onset other (Lung cancer) Father Ischemic Heart Disease Mother 62 CABG Stroke Mother 58 Diabetes Mother Peripheral Artery Disease Mother S/p bilateral carotid endarterectomies Hypertension Mother other (hypothyroidism) Sister other (hypothyroidism) Brother Heart Attack Brother 59 S/p CABG Diabetes Brother ALLERGIES: ALLERGIES Allergen Reactions Penicillins Rash MEDICATIONS: atenolol (TENORMIN) 25 mg tablet Take 1 tablet by mouth twice daily. rivaroxaban (XARELTO) 20 mg tablet Take 1 tablet by mouth once daily. flecainide (TAMBOCOR) 150 mg tablet Take 1 tablet by mouth twice daily. levothyroxine (SYNTHROID) 100 mcg tablet Take 1 tablet by mouth once daily. Plus an extra half tablet once a week (so total 7.5 tablets per week) Lactobacillus acidophilus (PROBIOTIC) 10 billion cell cap Take 1 capsule by mouth once daily. ZINC ORAL Take 50 mg by mouth once daily. MAGNESIUM ORAL Take 400 mg by mouth once daily. glucosamine HCl/chondroitin melendrez (GLUCOSAMINE-CHONDROIT IN ORAL) Take 1 tablet by mouth once daily. vitamin B complex (B COMPLEX ORAL) Take by mouth. CALCIUM ACETATE ORAL Take by mouth. cranberry fruit extract (CRANBERRY EXTRACT ORAL) Take by mouth. iron bis-glycinat/vit C/FA/B12 (GENTLE IRON ORAL) Take by mouth. estradiol (ESTRACE) 1 mg tablet Take 1 mg by mouth once daily. REVIEW OF SYSTEMS: GENERAL: Negative for: Weight loss or gain, Fever or Chills, Weakness and Sleep difficulties. HEENT: Negative for: Headache, Impaired Vision, Glasses, Hearing Impairment, Ringing in Ears, Nosebleeds, Poor dental care, Bleeding Gums, Dentures NECK: Negative for: Swelling, Pain, Stiffness RESPIRATORY: Negative for: Cough, Blood in Sputum, Shortness of breath, Wheezing, Apnea GASTROINTESTINAL: Negative for: Trouble swallowing, Heartburn, Change in bowel habits, Blood in stool, Dark black stools MUSCULOSKELETAL: Negative for: Muscle or joint pain, Stiffness , Joint swelling NEUROLOGIC/PSYCHIATRIC : Negative for: Weakness, Paralysis, Numbness, Tingling, Tremor, Nervousness, Depressed mood, Memory loss SKIN: Negative for: Rashes, Itching HEMATOLOGICAL/LYMPHATI C: Negative for: Easy bruising , Easy bleeding ENDOCRINE: Negative for: Heat or cold intolerance, Excessive sweating, Frequent urination, Frequent thirst PHYSICAL EXAMINATION: BP 148/68 Pulse (!) 58 Ht 160 cm (5' 3 ) Wt 95.7 kg (211 lb) BMI 37.38 kg/m? General: Well appearing, in no acute distress. Skin: No clubbing, no cyanosis. Eyes: Extra ocular movements intact Oropharynx: Teeth in good repair. Neck: No jugular venous distention, no carotid bruits, carotids have a normal upstroke, no palpable thyromegaly. Lungs: Clear to auscultation bilaterally, no wheezing or rhonchi. Heart: Regular rhythm, PMI not displaced, S1, S2 normal, no S3, no S4, no heaves, no rub and no murmur. Abdomen: Sof (more content not included)... Normal [facility] [id number] 04-15-2022 ECG01 Ventricular Rate : 5 8 BPM Atrial Rate : 58 BPM P-R Interval : 254 ms QRS Duration : 100 ms Q-T Interval : 412 ms QTC Calculation(Bazett) : 404 ms Calculated P Gray : 74 degrees Calculated R Gray : 138 degrees Calculated T Gray : 71 degrees SINUS BRADYCARDIA WITH 1ST DEGREE AV BLOCK POSSIBLE LEFT ATRIAL ENLARGEMENT RIGHT AXIS DEVIATION ABNORMAL ECG Confirmed by TERESO ROSA MD ([id number]) on 04/16/2022 2:43:50 PM NAME : ESE ESTRADA PID : [id number] : 1960 Gender : Female Race : ORD : Procedure Date : Apr 15 2022 13:04:50 Edit Date : Apr 16 2022 14:43:56 Diagnosis: SINUS BRADYCARDIA WITH 1ST DEGREE AV BLOCK POSSIBLE LEFT ATRIAL ENLARGEMENT RIGHT AXIS DEVIATION ABNORMAL ECG Confirmed by TERESO ROSA MD ([id number]) on 04/16/2022 2:43:50 PM Test Reason : Location : 192 : AVCRD Overread By : TERESO ROSA MD Edited By : TERESO ROSA MD Referred By : TAYLER BA Acquired by : , Chapis [facility] XR CHEST 2V FRONTAL/[facility] Tele[facility] (AVPRAD) ESE ESTRADA ([id number]) 1960 F Date Time Provider Department 12/18/20 JOHN WALSH AVPRAD During your visit today, we recorded the following information about you: John Walsh MD 12/18/2020 5:53 PM Signed Patient reports recurrence of atrial fibrillation, Hrs 100s, heart pounding sensation; of note last day of antibiotics for illness; I suggested patient restart flecainide 150mg dose today and tomorrow, and increase atenolol for tonight to 50mg instead of usual dose 25mg. Will have team reach out to her tomorrow. Alfredo Clayton RN 12/19/2020 1:16 PM Signed Spoke to pt on phone, she states she is still in Afib heart pt felt fine this AM heart rate was in 70's but now heart rate is 107, Last BP was yesterday 136/79. Pt following below MD recommendations. Pt is still lightheaded at times. Please advise. Lexus Crain APRN.CNP 12/19/2020 2:36 PM Signed Recommend she continue Flecainide and atenolol as outlined by Dr. Walsh. Recommend that patient have appointment with Dr. Markham to discuss options moving forward given frequently recurring atrial fibrillation. BRAXTON Rosario APRN.CNP 12/19/2020 2:36 PM Signed She she should also continue her oral anticoagulation. BRAXTON Rosario RN 12/19/2020 2:43 PM Signed Called and spoke with patient. Relayed message below per Darwin Crain CNP. Patient verbalized understanding. Dustin Candelario Patient [employer] 12/19/2020 3:00 PM Signed Patient is scheduled on 02/12/[address] Markham. Patient is also scheduled on 01/07/2021 with Leigha Zuniga. Will place patient on waitlist for Dr. Markham. Please advise. Peyton Thornton Ma 12/29/2020 2:41 PM Signed Patient scheduled for 01/06/2021 @ 8:00am with dr.tanaka Peyton Thornton Ma Allergies As of Date: 12/18/2020 Noted Allergy Reaction PENICILLINS 03/03/2012 2 - Rash Date Reviewed: 10/30/2020 Reviewed by: Todd Mendez - Fully Assessed Reason for Visit: Patient Question [7517] Patient Update [1234] Visit Diagnosis:Medication management [Z79.899] Prescriptions as of 12/29/2020 - levothyroxine (SYNTHROID) 100 mcg tablet Take 1 tablet by mouth once daily. - rivaroxaban (XARELTO) 20 mg tablet Take 1 tablet by mouth once daily. - flecainide (TAMBOCOR) 100 mg tablet Take 1 tablet by mouth twice daily. - Lactobacillus acidophilus (PROBIOTIC) 10 billion cell cap Take 1 capsule by mouth once daily. - ZINC ORAL Take 50 mg by mouth once daily. - MAGNESIUM ORAL Take 400 mg by mouth once daily. - glucosamine HCl/chondroitin melendrez (GLUCOSAMINE-CHONDROIT IN ORAL) Take 1 tablet by mouth once daily. - atenolol (TENORMIN) 25 mg tablet Take 1 tablet by mouth once daily. - vitamin B complex (B COMPLEX ORAL) Take by mouth. - CALCIUM ACETATE ORAL Take by mouth. - cranberry fruit extract (CRANBERRY EXTRACT ORAL) Take by mouth. - iron bis-glycinat/vit C/FA/B12 (GENTLE IRON ORAL) Take by mouth. - estradiol (ESTRACE) 1 mg tablet Take 1 mg by mouth once daily. Problem List As Of Date 12/18/2020 Noted Resolved Precordial pain [R07.2] 02/27/2019 Palpitations [R00.2] 02/27/2019 Obesity, Class I, BMI 30-34.9 [E66.9] 02/27/2019 Encounter Status:Closed by JOHN WALSH on 12/18/20 Normal [facility] XR CHEST 2 Von 12-09-2020 XR CHEST 2 V EXAMINATION: XR CHES T 2 V HISTORY: Cough COMPARISON: No relevant comparison available. TECHNIQUE: PA and lateral FINDINGS: LUNGS: No significant pulmonary parenchymal abnormalities. VASCULATURE: No increased pulmonary vasculature. PLEURA: No pneumothorax, effusion, or pleural thickening. CARDIAC: No cardiomegaly or cardiac silhouette abnormality. MEDIASTINUM: No visible mass or adenopathy. BONES: Mild degenerative disc disease and spondylosis without visible acute abnormalities. OTHER: Negative. IMPRESSION: No acute disease. Electronically authenticated by: ALAN MESA Date: 2020-12-09 15:32 Normal [facility] MM screening mammo BI w/CADo n 12-01-2020 MM screening mammo BI w/CAD [facility] [place] [address] [place] [address] Mammography Report Signed Patient: Ese Estrada MR#: [id number] : 1960 Acct:[id number] Age/Sex: 60 / F ADM Date: 12/01/20 Loc: [place] Room: Type: [facility] Attending Dr: Mendoza Baeza DO Ordering Provider: Mendoza Baeza DO Date of Service: 12/01/20 MM/MM screening mammo BI w/CAD: screening;Encounter for screening mammogram for malignant ne Copies to: MD Mendoza Sin DO Bilateral Screening Full Field digital mammogram with 3-D imaging. Full field digital CC and MLO imaging performed. CAD utilized. COMPARISON: 11/27/19 HISTORY:Screening FINDINGS: Scattered fibroglandular densities of the breast parenchyma identified. No developing architectural distortion, developing focal breast asymmetry or developing malignant calcifications identified. A few scattered punctate calcifications redemonstrated. MM/MM screening mammo BI w/CAD IMPRESSION:No mammographic evidence of malignancy. Routine follow-up recommended in one year. RESULT CODE: 2 Benign Findings(s) DENSITY CODE: 2 (approximately 25-50% glandular) FOLLOW UP: 1YR THE FALSE-NEGATIVE RATE OF MAMMOGRAPHY IS APPROXIMATELY 10%. IMAGING OF A PALPABLE ABNORMALITY MUST BE BASED ON CLINICAL GROUNDS. PATIENT WAS ENTERED INTO A REMINDER SYSTEM WITH A TARGET DUE DATE FOR THE NEXT MAMMOGRAM. Impression dictated by: Jayson Rosen M.D.12/01/2020 12:30 PM Dictation Location: [facility] Transcribed By: [facility] 12/01/20 1230 Dictated By: Jayson Rosen DO 12/01/20 1223 Signed By: 12/01/20 1230 [facility] ANES POSTPROC EVALon 021 ANES POSTPROC EVAL HNO ID: [id number] Author: Kristi Chapin MD Service: Anesthesiology Author Type: Anesthesiologist Type: Anesthesia Postprocedure Evaluation Filed: 09/05/2020 1:31 PM Note Text: POST ANESTHESIA EVALUATION NOTE : 1960 Procedure Summary Date: 09/05/20 Room / Location: CATH07 / CATH Anesthesia Start: 1205 Anesthesia Stop: 1219 Procedure: CARDIOVERSION EXTERNAL ELECTIVE (N/A ) Diagnosis: Atrial fibrillation, unspecified type (HCC) (Atrial fibrillation, unspecified type (HCC) [I48.91]) Surgeons: Tayler Barboza MD Responsible Provider: Kristi Chapin MD Anesthesia Type: general, MAC ASA Status: 2 Anesthesia Type: general, MAC Last vitals Vitals Value Taken Time BP 102/63 09/05/20 1317 Temp 09/05/20 1330 Pulse 67 09/05/20 1330 Resp 16 09/05/20 1330 SpO2 100 % 09/05/20 1330 Vitals shown include unvalidated device data. Post Anesthesia Patient Status Patient Evaluation: PACU. PACU/ICU Patient Condition: stable. Anticipated Disposition: phase 2 then home. Neurological Status: aware and responsive. Pulmonary Status: breathing comfortably on room air Airway Control: returned to baseline unsupported. Cardiovascular Status: stable. Pain Management: clinically adequate Postoperative Hydration: acceptable. Intraoperative Events: no significant anesthesia events Recommendation: continue current plan of care. No complications documented. SIGNATURE: Kristi Chapin MD PATIENT NAME: Ees Estrada DATE: September 05, 2020 TIME: 1:30 PM CSN: [id number] [facility] ANES PRE-OPon 09-05-2020 ANES PRE-OP HNO ID: [id number] Author: Kristi Chapin MD Service: Anesthesiology Author Type: Anesthesiologist Type: Anesthesia Preprocedure Evaluation Filed: 09/05/2020 12:00 PM Note Text: ANESTHESIOLOGY DAY OF SURGERY NOTE : 1960 Procedure(s) (LRB): CARDIOVERSION EXTERNAL ELECTIVE (N/A) Surgeon(s): Tayler Barboza MD Estimated body mass index is 35.57 kg/m? as calculated from the following: Height as of this encounter: 160 cm (5' 3 ). Weight as of this encounter: 91.1 kg (200 lb 12.8 oz). Most recent hematocrit and potassium results: Hematocrit 40.8 09/05/2020 Potassium 4.7 06/09/2020 Relevant Problems No relevant active problems I - PHYSICAL EVALUATION AIRWAY Patient intubated: No. Tracheostomy tube not present Mallampati: I. TM distance: >3 FB. Neck ROM: full ROM without neurological symptoms. Mouth opening: adequate. Short neck: no. Thick neck: no DENTAL Dental findings: teeth intact. Additional exam findings: yes. CARDIOVASCULAR Normal cardiovascular observations. Rhythm: regular Rate: normal PULMONARY Normal pulmonary observations. Breath sounds clear to auscultation. II - ANESTHESIA PLAN ASA Score: 2 Anesthetic Plan: MAC NPO Status: adequate Monitoring plan: standard ASA. Postoperative analgesic plan: parenteral or oral opioids. Anesthetic Risks, Benefits, Alternatives, Personnel Discussed. Consent obtained from: patient.Patient / Surrogate agrees to blood products: Yes Significant changes in the patient condition since the History and Physical, not otherwise documented in primary service progress note: no. Potential Anesthesia issues that may suggest increased risk of complications or contraindication to planned procedure: none. Vitals Value Taken Time BP 126/73 09/05/20 1130 Pulse 98 09/05/20 1130 Resp 16 09/05/20 1130 Temp 36.6 ?C (97.9 ?F) 09/05/20 1130 SpO2 100 % 09/05/20 1130 No current facility-administered medications on file as of 09/05/2020. Outpatient Medications as of 09/05/2020 Medication Sig - Lactobacillus acidophilus (PROBIOTIC) 10 billion cell cap Take 1 capsule by mouth once daily. - flecainide (TAMBOCOR) 100 mg tablet Take 1 tablet by mouth twice daily. - ZINC ORAL Take 50 mg by mouth once daily. - MAGNESIUM ORAL Take 400 mg by mouth once daily. - apixaban (ELIQUIS) 5 mg tab(s) Take by mouth twice daily. - glucosamine HCl/chondroitin melendrez (GLUCOSAMINE-CHONDROIT IN ORAL) Take 1 tablet by mouth once daily. - atenolol (TENORMIN) 25 mg tablet Take 1 tablet by mouth once daily. - vitamin B complex (B COMPLEX ORAL) Take by mouth. - CALCIUM ACETATE ORAL Take by mouth. - cranberry fruit extract (CRANBERRY EXTRACT ORAL) Take by mouth. - iron bis-glycinat/vit C/FA/B12 (GENTLE IRON ORAL) Take by mouth. - ARMOUR THYROID 90 mg tab Take 1 tablet by mouth once daily. - estradiol (ESTRACE) 1 mg tablet Take 1 mg by mouth once daily. I have interviewed and examined the patient. I have reviewed the medical record and/or the pre-anesthesia evaluation, pertinent labs, and test results. This contains updated information obtained within 48 hours of Surgery/Procedure. SIGNATURE: Kristi Chapin MD PATIENT NAME: Ese Estrada DATE: September 05, 2020 TIME: 12:00 PM CSN: [id number] Normal [facility] Basic Metabolic Panlon 09-05 Anion gap [Moles/Vol] 11 mmol/L Normal 9-18 [facility] Comment on above: Performed By: #### B MP, CBCDIF #### [facility] [address] [place] [address] Calcium [Mass/Vol] 9.5 mg/dL Normal 8.5-10.5 [facility] Comment on above: Performed By: #### B LASHANDA, CBCDIF #### [place] [phone] Chloride [Moles/Vol] 105 mmol/L Normal 98-110 [facility] Comment on above: Performed By: #### B LASHANDA, CBCDIF #### [place] [phone] CO2 [Moles/Vol] 26 mmol/L Normal 23-32 [facility] Comment on above: Performed By: #### B LASHANDA, CBCDIF #### [place] [id number] Creatinine [Mass/Vol] 0.76 mg/dL Normal 0.70-1.40 [facility] Comment on above: Performed By: #### B LASHANDA, CBCDIF #### [place] [phone] eGFR- Amer. >60 Normal >60 [facility] Comment on above: Performed By: #### B LASHANDA, CBCDIF #### [place] [id number] eGFR-All Other Races >60 Normal >60 [facility] Comment on above: Performed By: #### B LASHANDA, CBCDIF #### [place] [phone] Glucose [Mass/Vol] 95 mg/dL Normal 65-100 [facility] Comment on above: Performed By: #### B LASHANDA, CBCDIF #### [place] [phone] Potassium [Moles/Vol] 4.6 mmol/L Normal 3.5-5.0 [facility] Comment on above: Performed By: #### B LASHANDA, CBCDIF #### [place] [id number] Sodium [Moles/Vol] 142 mmol/L Normal 132-148 [facility] Comment on above: Performed By: #### B MP, CBCDIF #### [place] [phone] Urea nitrogen [Mass/Vol] 14 mg/dL Normal 8-25 [facility] Comment on above: Performed By: #### B MP, CBCDIF #### [place] [phone] CBC and Differentialon 09-05 Abs Baso 0.06 k/uL Normal <0.11 [facility] Comment on above: Performed By: #### B LASHANDA, CBCDIF #### [place] [phone] Abs Brooke 0.58 k/uL Normal <0.87 [facility] Comment on above: Performed By: #### B MP, CBCDIF #### [place] [phone] Abs Neut 5.58 k/uL Normal 1.45-7.50 [facility] Comment on above: Performed By: #### B LASHANDA, CBCDIF #### [address] Absolute nRBC <0.01 Normal <0.01 [facility] Comment on above: Performed By: #### B MP, CBCDIF #### [address] Basophils/100 WBC (Bld) 0.7 % Normal [facility] Comment on above: Performed By: #### B MP, CBCDIF #### [address] DTYPE Auto Diff Normal [facility] Comment on above: Performed By: #### B MP, CBCDIF #### [place] [phone] Eosinophils (Bld) [#/Vol] 0.29 10*3/uL Normal <0.46 [facility] Comment on above: Performed By: #### B MP, CBCDIF #### [place] [phone] Eosinophils/100 WBC (Bld) 3.3 % Normal [facility] Comment on above: Performed By: #### B MP, CBCDIF #### [place] [phone] Erythrocyte distribution width (RBC) [Ratio] 12.9 % Normal 11.5-15.0 [facility] Comment on above: Performed By: #### B MP, CBCDIF #### [place] [phone] Hematocrit (Bld) [Volume fraction] 40.8 % Normal 36.0-46.0 [facility] Comment on above: Performed By: #### B MP, CBCDIF #### [place] [phone] Hemoglobin (Bld) [Mass/Vol] 13.5 g/dL Normal 11.5-15.5 [facility] Comment on above: Performed By: #### B MP, CBCDIF #### [place] [phone] Lymphocytes (Bld) [#/Vol] 2.24 10*3/uL Normal 1.00-4.00 [facility] Comment on above: Performed By: #### B MP, CBCDIF #### [place] [phone] Lymphocytes/100 WBC (Bld) 25.5 % Normal [facility] Comment on above: Performed By: #### B MP, CBCDIF #### [place] [phone] MCH 28.7 pG Normal 26.0-34.0 [facility] Comment on above: Performed By: #### B MP, CBCDIF #### [phone] MCHC (RBC) [Mass/Vol] 33.1 g/dL Normal 30.5-36.0 [facility] Comment on above: Performed By: #### B MP, CBCDIF #### [place] [id number] [place] [phone] MCV (RBC) [Entitic vol] 86.8 fL Normal 80.0-100.0 [facility] Comment on above: Performed By: #### B MP, CBCDIF #### [place] [phone] Monocytes/100 WBC (Bld) 6.6 % Normal [facility] Comment on above: Performed By: #### B MP, CBCDIF #### [phone] Neutrophils/100 WBC (Bld) 63.9 % Normal [facility] Comment on above: Performed By: #### B MP, CBCDIF #### [place] [phone] NRBCs 0.0 /100 WBC Normal 0 [facility] Comment on above: Performed By: #### B MP, CBCDIF #### [phone] Platelet mean volume (Bld) [Entitic vol] 10.3 fL Normal 9.0-12.7 [facility] Comment on above: Performed By: #### B MP, CBCDIF #### [place] [phone] Platelets (Bld) [#/Vol] 341 10*3/uL Normal 150-400 [facility] Comment on above: Performed By: #### B MP, CBCDIF #### [place] [phone] RBC (Bld) [#/Vol] 4.70 10*6/uL Normal 3.90-5.20 [facility] Comment on above: Performed By: #### B MP, CBCDIF #### [place] [phone] WBC (Bld) [#/Vol] 8.77 10*3/uL Normal 3.70-11.00 [facility] Comment on above: Performed By: #### B MP, CBCDIF #### [facility] [address] [place] [address] NURSING PROGon 09-05-2020 NURSING PROG HNO ID: [id number] Author: Destiny Polanco RN Service: ? Author Type: Registered Nurse Type: Nursing Progress Note Filed: 09/05/2020 1:40 PM Note Text: 1220: Pt. admitted into recovery S/P Successful CVN One shock @200J. Pt.sleepy, easily aroused, oriented. denies pain or discomfort. In SR. Pt. has no verbal complaints. VSS 1230: Pt. alert and oriented. at bed side remains in SR. Ice water served. 1330: Pt. remains in SR. Silvadene cream to reddened area on chest and back 1335: Pt. has no verbal complaints Written and verbal discharge instructions given to patient and with good understanding. Hepilock d/chacorta. changing for discharge. remains in SR 1345: Discharged per wheelchair to to home. Normal [facility] ANES POSTPROC EVALon 021 ANES POSTPROC EVAL HNO ID: [id number] Author: Zain Bass MD Service: Anesthesiology Author Type: Anesthesiologist Type: Anesthesia Postprocedure Evaluation Filed: 06/11/2020 10:01 AM Note Text: POST ANESTHESIA EVALUATION NOTE : 1960 Procedure Summary Date: 06/11/20 Room / Location: CATH07 / CATH Anesthesia Start: 738 Anesthesia Stop: 749 Procedure: CARDIOVERSION EXTERNAL ELECTIVE (N/A ) Diagnosis: Atrial fibrillation, unspecified type (HCC) (Atrial fibrillation, unspecified type (HCC) [I48.91]) Surgeons: Tayler Barboza MD Responsible Provider: Zain Bass MD Anesthesia Type: MAC ASA Status: 2 Anesthesia Type: MAC Last vitals Vitals Value Taken Time BP 98/60 06/11/20 0845 Temp 06/11/20 1001 Pulse 61 06/11/20 0846 Resp 18 06/11/20 0846 SpO2 98 % 06/11/20 0846 Vitals shown include unvalidated device data. Post Anesthesia Patient Status Patient Evaluation: PACU. PACU/ICU Patient Condition: stable. Anticipated Disposition: phase 2 then home. Neurological Status: aware and responsive. Pulmonary Status: breathing comfortably on room air Airway Control: returned to baseline unsupported. Cardiovascular Status: stable. Pain Management: clinically adequate - multimodal analgesia pain management approach Postoperative Hydration: acceptable. Intraoperative Events: no significant anesthesia events Post Operative Nausea/Vomiting Status: no significant post operative nausea or vomiting Anesthetic Observations: no significant anesthetic observations Recommendation: further care per PACU/ICU/floor team. SIGNATURE: Zain Bass MD PATIENT NAME: Ese Estrada DATE: June 11, 2020 TIME: 10:01 AM CSN: [id number] [facility] ANES PRE-OPon 06-11-2020 ANES PRE-OP HNO ID: [id number] Author: Zain Bass MD Service: Anesthesiology Author Type: Anesthesiologist Type: Anesthesia Preprocedure Evaluation Filed: 06/11/2020 7:56 AM Note Text: ANESTHESIOLOGY DAY OF SURGERY NOTE : 1960 Procedure(s) (LRB): CARDIOVERSION EXTERNAL ELECTIVE (N/A) Surgeon(s): Tayler Barboza MD Estimated body mass index is 35.09 kg/m? as calculated from the following: Height as of this encounter: 160 cm (5' 3 ). Weight as of this encounter: 89.9 kg (198 lb 1.6 oz). Most recent hematocrit and potassium results: Hematocrit 44.3 06/09/2020 Potassium 4.7 06/09/2020 Relevant Problems No relevant active problems I - PHYSICAL EVALUATION AIRWAY Patient intubated: No. Tracheostomy tube not present Mallampati: II. TM distance: >3 FB. Neck ROM: full ROM without neurological symptoms. Mouth opening: adequate. Short neck: no. Thick neck: no DENTAL Dental findings: teeth intact. Additional exam findings: yes. CARDIOVASCULAR Rhythm: irregular Rate: normal PULMONARY Normal pulmonary observations. II - ANESTHESIA PLAN ASA Score: 2 Anesthetic Plan: MAC The patient is not a current smoker. NPO Status: adequate Monitoring plan: standard ASA. Postoperative analgesic plan: multimodal analgesia. Anesthetic Risks, Benefits, Alternatives, Personnel Discussed. Consent obtained from: patient.Patient / Surrogate agrees to blood products: blood products not planned DNR status not reviewed with patient and/or family prior to surgery. Significant changes in the patient condition since the History and Physical, not otherwise documented in primary service progress note: no. Potential Anesthesia issues that may suggest increased risk of complications or contraindication to planned procedure: none. Vitals Value Taken Time BP 137/76 06/11/20 0738 Pulse 85 06/11/2039 Resp 14 06/11/2039 Temp 36.3 ?C (97.3 ?F) 06/11/20 0704 SpO2 100 % 06/11/20738 No current facility-administered medications on file as of 06/11/2020. Outpatient Medications as of 06/11/2020 Medication Sig - vitamin B complex (B COMPLEX ORAL) Take by mouth. - CALCIUM ACETATE ORAL Take by mouth. - cranberry fruit extract (CRANBERRY EXTRACT ORAL) Take by mouth. - iron bis-glycinat/vit C/FA/B12 (GENTLE IRON ORAL) Take by mouth. - ARMOUR THYROID 90 mg tab Take 1 tablet by mouth once daily. - estradiol (ESTRACE) 1 mg tablet Take 1 mg by mouth once daily. - TURMERIC ORAL Take by mouth. - aspirin, enteric coated (ASPIRIN, ENTERIC COATED) 81 mg EC tablet Take 81 mg by mouth once daily. - diclofenac, EC, (VOLTAREN) 75 mg EC tablet Take 75 mg by mouth once daily. I have interviewed and examined the patient. I have reviewed the medical record and/or the pre-anesthesia evaluation, pertinent labs, and test results. This contains updated information obtained within 48 hours of Surgery/Procedure. SIGNATURE: Zain Bass MD PATIENT NAME: Ese Estrada DATE: June 11, 2020 TIME: 7:54 AM CSN: [id number] Normal [facility] NURSING PROGon 06-11-2020 NURSING PROG HNO ID: [id number] Author: Claudia SerraRn) YANETH Ibrahim Service: Nursing Author Type: Registered Nurse Type: Nursing Progress Note Filed: 06/11/2020 9:47 AM Note Text: Nursing Progress Note Topic of Note: Daily Note Ese Estrada [id number] Pt. in recovery following a cardioversion. Pt. received 40 mg of Brevital and was shocked once at 200 joules. Pt. is awake and alert. No respiratory distress on room air. Breathing is even and unlabored. No neuro deficits noted. SR on the monitor. Post EKG complete. 0815 Pt. given both written and verbal discharge instructions. Pt. signed discharge instruction sheet and verbalized understanding of information presented. 0845 IV removed with catheter intact. Pt. getting dressed to go home. 0900 Discharged via w/c to car where her Janes will drive her home. This note was completed by: Cluadia Ibrahim RN [facility] NURSING PROG HNO ID: [id number] Author: Ronal (Rn) YANETH Mojica Service: ? Author Type: Registered Nurse Type: Nursing Progress Note Filed: 06/11/2020 7:36 AM Note Text: Nursing Progress Note Topic of Note: pre procedure Ese Estrada [id number] Arrived from home for CVN IV placed by Reema WOLFE,. Telemetry applied, Atrial fib rhythm confirmed with EKG. Preop database completed by this RN. Neuro: smile equal, hand grasps equal and strong, able to move all extremities without difficulty, follows all verbal commands. Teaching done on procedure with patient this RN and Reema. She is asking appropriate questions and show understanding with Teach Back method Assessment done by anesthesia department This note was completed by: Ronal Mojica RN [facility] HOSPon 06-05-2020 HOSP Patient:Ese Estrada MRN: Height:5' 3 (1.6 m) Weight:198 lb 1.6 oz (89.858 kg) Outpatient Medications as of 06/11/20: apixaban (ELIQUIS) 5 mg tab(s) glucosamine HCl/chondroitin melendrez (GLUCOSAMINE-CHONDROIT IN ORAL) atenolol (TENORMIN) 25 mg tablet TURMERIC ORAL vitamin B complex (B COMPLEX ORAL) CALCIUM ACETATE ORAL cranberry fruit extract (CRANBERRY EXTRACT ORAL) iron bis-glycinat/vit C/FA/B12 (GENTLE IRON ORAL) ARMOUR THYROID 90 mg tab estradiol (ESTRACE) 1 mg tablet aspirin, enteric coated (ASPIRIN, ENTERIC COATED) 81 mg EC tablet diclofenac, EC, (VOLTAREN) 75 mg EC tablet Admission/Clinic Administered Medications as of 06/11/20: silver sulfADIAZINE 1 % (SILVADENE,THERMAZENE) Problem List: Precordial pain [R07.2] Palpitations [R00.2] Obesity, Class I, BMI 30-34.9 [E66.9] Allergies: Penicillins Date Verified: 06/11/20 Lab Values Lab Value Units Date High Low POTA* 4.7 mmol/L 06/09/2020 5.1 3.7 IKE* 44.3 % 06/09/2020 46.0 36.0 Progress Notes (CARD [facility] REJ): Kathryn Garrett Pss 06/05/2020 10:59 AM Signed Patient having cardioversion next week August I have lab and covid orders please Olga A Norma 06/05/2020 12:00 PM Addendum ----- Message from ADA Pereira (Huc) sent at 06/05/2020 10:27 AM EST ----- Please offer 06/11 at 8:30 ----- Message ----- From: Tayler Barboza MD Sent: 06/05/2020 9:23 AM EST To: ADA Pereira (Huc) EPS LAB PROCEDURE REQUEST: Cardioversion AND/or LAUREN PATIENT: Ese Estrada Request Placed by: Tayler Barboza MD Requesting Physician: CT Procedure Physician: Gonzales jeffrey MD Date of Last HANDP? Procedure Requested: DCC Indications / Dx for procedure: Atrial Fibrillation Anticoagulation Status: Eliquis (apixaban) Type of bed needed: 2 HR RECOVERY IN I/O ROOM Next week Previous Version Lexus Crain APRN.GRETA 06/05/2020 4:16 PM Signed Orders filed. Lexus Crain APRN.GRETA Crain APRN.CNP 06/05/2020 4:16 PM Signed Addended by: LEXUS CRAIN on: 06/05/2020 04:16 PM Modules accepted: Orders Progress Notes (CARD [facility] REJ): Tayler Barboza MD, 06/05/2020 5:30 PM Signed Heart and Vascular [facility] Department of Cardiovascular Medicine SECTION OF CARDIAC PACING and ELECTROPHYSIOLOGY OUTPATIENT VISIT DATE June 05, 2020 OUTPATIENT VISIT TYPE NEW PRIMARY CARE PHYSICIAN: Annie Menjivar MD [address] [id number] REFERRING PHYSICIAN: SELF CHIEF COMPLAINT: Persistent atrial fibrillation HISTORY OF PRESENT ILLNESS: Ms. Estrada is a 60 year old female with a structurally normal heart and treated hypothyroidism --who has had a longstanding history of palpitations previously with only documented PACs and PVCs --just checked this was detected during May 2020 during a BX blood donation effort when she was noted to be tachycardic. ECG (bar machine operator confirmed the diagnosis of atrial fibrillation via ECG. She was treated with Eliquis since then. She reports symptoms of easy fatigue and decreased exercise tolerance. By symptoms, she believes onset of atrial fibrillation may have been back in March 2020. There is a strong family history of atrial fibrillation with 2 brothers and her mother. One of her brothers underwent catheter ablation many years ago in [place] and has done fairly well. Ese mentions a lot of aches and pains, that are largely joint related. Attributes this to when she began taking Eliquis. But also mentions that with this new medication she was instructed by her bar machine operator to stop taking diclofenac and aspirin which she previously took and seemingly was effective in controlling her arthritic pain. She denies chest pain, shortness of breath, orthopnea, cough, edema, palpitations, PND, lightheadedness or syncope. Has noticed mainly decreased exercise tolerance and easy fatigue since onset of atrial fibrillation which is most likely March 2020. When she was in her early adulthood years, she took atenolol, after being told she had mitral valve prolapse. To the best of her knowledge this did not cause side effects. It was discontinued around the time she and her were planning to have children. PAST CARDIAC HISTORY: PAST MEDICAL HISTORY Diagnosis Date - Hypothyroidism - Mitral valve prolapse rheumatic fever as child PAST SURGICAL HISTORY Procedure Laterality Date - APPENDECTOMY - PAST SURGICAL HISTORY OF 2 c-sections - TONSILLECTOMY HX SOCIAL HISTORY Social History Tobacco Use - Smoking status: Never Smoker - Smokeless tobacco: Never Used Substance Use Topics - Alcohol use: No - Drug use: No FAMILY HISTORY Problem Relation Age of Onset - other (Lung cancer) Father - Ischemic Heart Disease Mother 62 CABG - Stroke Mother 58 - Diabetes Mother - Peripheral Artery Disease Mother (more content not included)... Normal [facility] Vital Signs Date Time Vital Sign Value Performing Clinician Gagandeep ott 07-19-2023 14:17-0400 Body height 160 cm Carie Negron MD Work Phone: [facility] 07-19-2023 14:17-0400 Body mass index (BMI) [Ratio] 37.02 kg/m2 Carie Negron MD Work Phone: [facility] 07-19-2023 14:17-0400 Body weight 94.8 kg Carie Negron MD Work Phone: [facility] 07-19-2023 14:17-0400 Diastolic blood pressure 84 mm[Hg] Carie Negron MD Work Phone: [facility] 07-19-2023 14:17-0400 Heart rate 54 /min Carie Negron MD Work Phone: [facility] 07-19-2023 14:17-0400 Systolic blood pressure 138 mm[Hg] Carie Negron MD Work Phone: [facility] 12-30-2022 14:06-0400 Diastolic blood pressure 76 mm[Hg] Referring Provider Unknown [facility] [address] DO Work Phone: 12-30-2022 14:06-0400 Systolic blood pressure 120 mm[Hg] Referring Provider Unknown [facility] [address] DO Work Phone: 12-30-2022 14:05-0400 Body height 160.02 cm Referring Provider Unknown [facility] [address] DO Work Phone: 12-30-2022 14:05-0400 Body mass index (BMI) [Ratio] 37.38 kg/m2 Referring Provider Unknown [facility] [address] DO Work Phone: 12-30-2022 14:05-0400 Body surface area Derived from formula 1.98 m2 Referring Provider Unknown [facility] [address] DO Work Phone: 12-30-2022 14:05-0400 Body weight 95.71 kg Referring Provider Unknown [facility] [address] DO Work Phone: 12-30-2022 14:05-0400 Diastolic blood pressure 72 mm[Hg] Referring Provider Unknown [facility] DO Work Phone: 12-30-2022 14:05-0400 Heart rate 56 /min Referring Provider Unknown [facility] DO Work Phone: 12-30-2022 14:05-0400 Systolic blood pressure 132 mm[Hg] Referring Provider Unknown [facility] DO Work Phone: 04-15-2022 12:50-0500 Body height 160 cm Tayler Barboza MD Work Phone: [facility] 04-15-2022 12:50-0500 Body weight 95.71 kg Tayler Barboza MD Work Phone: [facility] 04-15-2022 12:50-0500 Diastolic blood pressure 68 mm[Hg] Tayler Barboza MD Work Phone: [facility] 04-15-2022 12:50-0500 Heart rate 58 /min Tayler Barboza MD Work Phone: [facility] 04-15-2022 12:50-0500 Systolic blood pressure 148 mm[Hg] Tayler Barboza MD Work Phone: [facility] Encounters Encounter Date Encounter Type Care Provider Facility Start: 07-19-2023 End: 07-19-[address] [facility] Ambulatory Start: 07-19-2023 End: 07-19-2023 Office outpatient visit 25 minutes Carie Negron MD Work Phone: [facility] Comment on above: Persistent atrial fi brillation (CMS/HCC) (Primary Dx); Anticoagulated; BMI 37.0-37.9, adult; Obstructive sleep apnea syndrome; Never smoked cigarettes Start: 04-15-2023 Refill Alis curran MD Work Phone: Endocrinology Comment on above: Refill Request (Synt hroid) Start: 02-28-2023 Telephone encounter Damari mora RN Work Phone: Hematology/Oncology Start: 12-30-2022 Office consultation new/estab patient 60 min Referring Provider Unknown -[facility] DO Work Phone: Start: 12-30-[address] Carie Negron Facility: Start: 12-24-2022 Orders Only John chou MD Work Phone: Cardiology Comment on above: Palpitations (Primar y Dx) Start: 12-23-2022 Telephone encounter Tayler Barboza MD Work Phone: Cardiology Comment on above: A-fib Start: 07-29-2022 Telephone encounter Tayler Barboza MD Work Phone: Cardiology Comment on above: Patient Question Start: 07-14-2022 Telephone encounter Tayler Barboza MD Work Phone: Cardiology Comment on above: Appointment Start: 07-12-2022 Telephone encounter Tayler Barboza MD Work Phone: Cardiology Comment on above: Patient Question Start: 07-09-2022 End: 07-10-2022 ambulatory ANNIE MENJIVAR Facility:[facility] Start: 07-09-2022 End: 07-09-2022 Nursing evaluation of patient and report Ma Nurse Ike Bernal Work Phone: Hematology/Oncology Comment on above: High risk medication use (Primary Dx); Persistent atrial fibrillation (HCC) Start: 07-09-2022 Telephone encounter Tayler Barboza MD Work Phone: [facility] [place] Comment on above: Orders; Results Start: 07-04-2022 ambulatory Tayler Barboza MD Work Phone: Cardiology Comment on above: ATTN: DR MARKHAM Start: 06-18-2022 Refill Alis curran MD Work Phone: Endocrinology Comment on above: Refill Request Start: 04-26-2022 Refill Tayler Barboza MD Work Phone: Cardiology Comment on above: Refill Request Start: 04-15-2022 End: 04-15-2022 ambulatory TAYLER BARBOZA Facility:[facility] Start: 04-15-2022 End: 04-15-2022 Patient encounter procedure Tayler Barboza MD Work Phone: Cardiology Comment on above: Persistent atrial fi brillation (HCC) (Primary Dx); Encounter for monitoring flecainide therapy Start: 12-27-2021 ambulatory Tayler Barboza MD Work Phone: Cardiology Comment on above: ATTN: DR MARKHAM Start: 09-03-[address] ANNIE MENJIVAR Facility :[facility] Start: 04-08-2021 End: 04-08-2021 Patient encounter status [facility] Start: 04-08-2021 End: 04-08-2021 Subsequent hospital visit by physician Xr [facility] [place] Radiology Comment on above: Preoperative cardiov ascular examination [Z01.810] Start: 12-09-[address] ANNIE MENJIVAR Facility :[facility] Start: 12-09-2020 End: 12-10-[address] ANNIE MENJIVAR Facility:[facility] Procedures Date Procedure Procedure Detail Performing Clinician Start: 07-19-2023 ECG 12-LEAD CARIE SHERMAN Start: 07-19-2023 Ecg routine ecg w/le ast 12 lds w/i&r Carie Negron MD Work Phone: Start: 02-28-2023 Mammography Carie sherman MD Work Phone: Start: 04-15-2022 Ecg routine ecg w/le ast 12 lds i&r only [facility] Provider Start: 04-08-2021 Radiologic exam ches t 2 views Edelmira Ordonez APRN.PATIENT SAFETY ATTENDANT Work Phone: Appendectomy Referring Provi leonard Unknown Cardioversion Referring Prov ider Unknown section Referring P rovider Unknown Comment on above: 2; Destructive procedur e of nerve Referring Provider Unknown Hernia repair Referring Prov ider Unknown Hysterectomy Referring Provi leonard Unknown Tonsillectomy Referring Prov ider Unknown NEGATED: Highlighted row has not occurred! Total colonoscopy Referring Provider Unknown Plan of Treatment Date Care Activity Detail Author Start: 04-08-2024 DIABETES SCREEN DIABETES SCREEN [facility] Start: 04-08-2024 Diabetes Screening Diabetes Screenin g [facility] Start: 02-29-2024 Screening for malign ant neoplasm of breast Mammogram [facility] Start: 01-25-2024 End: 01-25-2024 Patient encounter procedure 01/25/2024 1:30 PM EDT Office Visit [facility] [address] [id number] Carie Negron MD [address] [facility] [address] [place] [address] [facility] Start: 07-19-2023 FUV, Provider: Carie Negron, Status: Pen, Time: 2:00 PM FUV, Provider: Carie Negron, Status: Pen, Time: 2:00 PM [facility] DO Work Phone: Start: 12-31-2022 Influenza vaccination [facility] Start: 12-24-2022 End: 02-23-2023 Basic metabolic 2000 panel - Serum or Plasma BASIC METABOLIC PNL Lab Routine Palpitations Expected: 12/24/2022, Expires: 02/23/2023 [facility] Work Phone: Comment on above: Expected: 12/24/2022 , Expires: 02/23/2023 Start: 12-24-2022 End: 02-23-2023 CBC W Auto Differential panel - Blood CBC + DIFF Lab Routine Palpitations Expected: 12/24/2022, Expires: 02/23/2023 [facility] Work Phone: Comment on above: Expected: 12/24/2022 , Expires: 02/23/2023 Start: 05-02-2022 DEPRESSION ASSESSMENT DEPRESSION ASS ESSMENT [facility] Start: 2022 RSV Vaccine (1 - 1-d ose 60+ series) RSV Vaccine (1 - 1-dose 60+ series) [facility] Start: 12-31-2021 Influenza vaccination INFLUENZA (#1) [facility] Start: 05-02-2021 DEPRESSION ASSESSMENT [facility] Start: 02-16-2012 SHINGRIX VACCINE (1 of 2) SHINGRIX VACCINE (1 of 2) [facility] Start: 02-16-2012 Zoster Vaccines (1 of 2) Zoste r Vaccines (1 of 2) [facility] Start: 2007 COLOGUARD (FIT-DNA) COLOGUARD (FIT-D NA) [facility] Start: 2007 Colonoscopy COLONOSCOPY [facility] Start: 2007 COLORECTAL CANCER SCREENING COLORECTAL CANCER SCREENING [facility] Start: [address] COLONOGRAPHY [facility] Start: 2007 FECAL OCCULT BLOOD FECAL OCCULT BLOO D [facility] Start: 2007 Lipid 1996 panel - S janet or Plasma Lipid Screening [facility] Start: 2007 Lipid panel Lipid Screening [facility] Start: 2007 LIPID SCREEN LIPID SCREEN [facility] Start: 2007 Screening for malign ant neoplasm of colon [facility] Start: 2007 SIGMOIDOSCOPY SIGMOIDOSCOPY [facility] Start: 2002 Mammography [facility] Start: 2002 Screening for malign ant neoplasm of breast Mammogram Screening [facility] Start: 02-16-1992 HPV TESTING HPV TESTING [facility] Start: 02-16-1992 Screening for malign ant neoplasm of cervix HPV Testing [facility] Start: 02-16-1984 DTaP/Tdap/Td Vaccine s (1 - Tdap) DTaP/Tdap/Td Vaccines (1 - Tdap) [facility] Start: 1983 PAP TESTING PAP TESTING [facility] Start: 1983 Screening for malign ant neoplasm of cervix [facility] Start: 1981 Urine microalbumin profile [facility] Start: 02-16-1980 ANNUAL PCP TEAM CANDLE MAKER EFRAÍN DISEASE VISIT ANNUAL PCP TEAM CHRONIC DISEASE VISIT [facility] Start: 02-16-1980 Diabetes mellitus screening Diabetes Screening [facility] Start: 02-16-1980 HEPATITIS C SCREENING HEPATITIS C [facility] Start: 02-16-1980 Hepatitis C screening Hepatitis C [facility] Start: 02-16-1980 HIV SCREENING HIV SCREENING [facility] Start: 02-16-1980 HIV screening HIV Screening [facility] Start: 1974 Adult depression screening assessment DEPRESSION SCREENING [facility] Start: 1963 MMR Vaccines (1 of 1 - Standard series) MMR Vaccines (1 of 1 - Standard series) [facility] Start: 1962 COVID-19 VACCINE (#1) COVID-19 VACCI NE (#1) [facility] Start: 1962 HIV screening HIV Screening [facility] Start: 1962 Lipid panel Lipid Panel [facility] Start: 1962 Screening for malign ant neoplasm of colon [facility] Start: 1962 Thyroid stimulating hormone measurement TSH Level [facility] Start: 1962 Yearly Adult Physical Yearly Adult P hysical [facility] End: 07-10-2023 ECG COMPLETE ECG COMPLETE ECG Routine High risk medication use Persistent atrial fibrillation (HCC) 1 Occurrences starting 07/09/2022 until 07/10/2023 [facility] Work Phone: Comment on above: 1 Occurrences starti ng 07/09/2022 until 07/10/2023 [facility] Payers Date Payer Category Payer Unknown [id number] 2022 Unknown [id number] 2012 Unknown [id number] 1962 Unknown [id number] 1962 Unknown [id number] 1962 Unknown [id number] [id number] [id number] 1962 Unknown [id number] 1962 Unknown [id number] [id number] 1959 Self-pay 1959 Unknown [id number] Social History Date Type Detail Facility Start: 03-03-2012 End: 07-19-2023 Tobacco smoking status NHIS Never smoked tobacco [facility] Start: 03-03-2012 End: 07-19-2023 Tobacco use and exposure Smokeless tobacco non-user [facility] Start: 01-06-2021 End: 05-14-2021 Alcohol intake Current non-drinker of alcohol (finding) [facility] Start: 1960 Sex Assigned At Not on file [facility] Start: 01-06-2021 End: 05-28-2022 History of Social function [facility] Start: 01-06-2021 End: 05-28-2022 Tobacco use panel [facility] National Score (1-100), lower number is lower risk Not on file [facility] Start: 03-09-2021 End: 07-19-2023 Exposure to SARS-CoV-2 (event) Not sure [facility] Start: 07-19-2023 Alcohol intake Lifetime non-d itzel (finding) [facility] Work Phone: Clinical Notes 06-11-2020 to 07-19-2023 Carie Negron MD - 07/19/2023 2:00 PM EDTPatient InstructionsTelephone Encounter - Ksenia Silva LPN - 04/15/2023 11:19 AM Kathryn White - 12/24/2022 7:01 AM EDTPatient Instructions Note Date & Type Note Facility 07-19-2023 History of Present illness Narrative Subjective Ese Estrada is a 63 y.o. female Chief Complaint Follow-up HPI Patient is here for follow-up for management for persistent atrial fibrillation treated with flecainide, mild sinus bradycardia, obesity, long-term anticoagulation. Since last time I saw her she denies any cardiac complaint of chest pain, palpitation, lightheadedness, dizziness or syncope. She remained mildly bradycardic. Assessment 1. Persistent recurrent atrial fibrillation maintained on sinus rhythm with flecainide 150 mg twice daily 2. Mild sinus bradycardia to flecainide and atenolol 3. Obesity 4. Probable sleep apnea based on symptoms 5. No history of coronary artery disease, LV systolic dysfunction or valvular abnormality Plan 1. I advised the patient to continue flecainide 150 twice daily but advised her to reduce atenolol to 12.5 mg twice daily 2. We discussed at great length the natural history of atrial fibrillation. If continue to have breakthrough arrhythmia next step would be trial of Rythmol or ablation 3. I counseled her regarding the link between atrial fibrillation, obesity and sleep apnea 4. I recommended outpatient sleep evaluation 5. We discussed anticoagulation at length. For the time being we will stay on Eliquis until we confirm the stability of her rhythm considering she had a relatively low CHADS2 vascular score consideration to switch to aspirin in the future might be given if remain in sinus rhythm 6 I advised her to notify me change in cardiac status or symptoms. Review of Systems All other systems reviewed and are negative. Vitals: 07/19/23 1417 BP: 138/84 BP Location: Left arm Patient Position: Sitting Pulse: 54 Weight: 94.8 kg (209 lb) Height: 1.6 m (5' 3 ) Objective Physical Exam Constitutional: Appearance: Normal appearance. HENT: Nose: Nose normal. Neck: Vascular: No carotid bruit. Cardiovascular: Rate and Rhythm: Bradycardia present. Pulses: Normal pulses. Heart sounds: Normal heart sounds. Pulmonary: Effort: Pulmonary effort is normal. Abdominal: General: Bowel sounds are normal. Palpations: Abdomen is soft. Musculoskeletal: General: Normal range of motion. Cervical back: Normal range of motion. Right lower leg: No edema. Left lower leg: No edema. Skin: General: Skin is warm and dry. Neurological: General: No focal deficit present. Mental Status: She is alert. Psychiatric: Mood and Affect: Mood normal. Behavior: Behavior normal. Thought Content: Thought content normal. Judgment: Judgment normal. Allergies Penicillins Current Medications Current Outpatient Medications: atenolol (Tenormin) 25 mg tablet, Take 0.5 tablets (12.5 mg) by mouth once daily., Disp: , Rfl: CALCIUM ACETATE ORAL, Take 1,200 mg by mouth once daily., Disp: , Rfl: estradiol (Estrace) 1 mg tablet, Take 1 tablet (1 mg) by mouth once daily., Disp: , Rfl: levothyroxine (Synthroid, Levoxyl) 100 mcg tablet, Take 1 tablet (100 mcg) by mouth once daily., Disp: , Rfl: levothyroxine (Synthroid, Levoxyl) 150 mcg tablet, Take 1 tablet (150 mcg) by mouth. On sundays, Disp: , Rfl: multivitamin tablet, Take 1 tablet by mouth once daily., Disp: , Rfl: apixaban (Eliquis) 5 mg tablet, Take 1 tablet (5 mg) by mouth 2 times a day., Disp: 180 tablet, Rfl: 3 flecainide (Tambocor) 150 mg tablet, Take 1 tablet (150 mg) by mouth 2 times a day., Disp: 180 tablet, Rfl: 3 Assessment/Plan 1. Persistent atrial fibrillation (CMS/HCC) Follow Up In Cardiology ECG 12 Lead flecainide (Tambocor) 150 mg tablet apixaban (Eliquis) 5 mg tablet 2. Anticoagulated 3. BMI 37.0-37.9, adult 4. Obstructive sleep apnea syndrome 5. Never smoked cigarettes Scribe Attestation By signing my name below, IKarma LPN, Scribe attest that this documentation has been prepared under the direction and in the presence of Carie Negron MD. Provider Attestation - Scribe documentation All medical record entries made by the Scribe were at my direction and personally dictated by me. I have reviewed the chart and agree that the record accurately reflects my personal performance of the history, physical exam, discussion and plan. documented in this encounter [facility] Work Phone: 07-19-2023 Instructions Karma Menjivar LPN - 07/19/2023 2:00 PM EDT Please bring all medicines, vitamins, and herbal supplements with you when you come to the office. Prescriptions will not be filled unless you are compliant with your follow up appointments or have a follow up appointment scheduled as per instruction of your physician. Refills should be requested at the time of your visit. BMI was above normal measurement. Current weight: 94.8 kg (209 lb) Weight change since last visit (-) denotes wt loss -2 lbs Weight loss needed to achieve BMI 25: 68.2 Lbs Weight loss needed to achieve BMI 30: 40 Lbs Provided instructions on dietary changes Provided instructions on exercise. documented in this encounter [facility] Work Phone: 04-15-2023 Miscellaneous Notes Pharmacy electronically requesting refills as follows: Requested Prescriptions Pending Prescriptions Disp Refills levothyroxine (SYNTHROID) 100 mcg tablet 96 tablet 3 Sig: Take 1 tablet by mouth once daily. Plus an extra half tablet once a week (so total 7.5 tablets per week) Last office visit: 07/09/2022 Last refill: 06/22/2022 90 days 3 refills Please review and advise. Ksenia Silva LPN documented in this encounter [facility] 02-28-2023 Miscellaneous Notes Spoke with potential HPC donor,Ese Estrada, by telephone on February 28, 2023. She is willing to have blood drawn to determine HLA match potential for recipient, Dedra Damon. Patient is on flecanide and a blood thinner. Will defer testing as a donor per NMDP guidelines. All questions answered at this time. Ese Estrada was instructed to call Damari Hernandez RN , pager [phone] with any further questions or concerns. Damari Hernandez RN documented in this encounter [facility] 02-28-2023 Miscellaneous Notes Called patient to discuss tissue typing. She did not answer, Left message with contact information for her to return call . Damari Hernandez RN documented in this encounter [facility] 12-24-2022 Note HNO ID: [id number] Author: Kathryn Paul Service: ? Author Type: ? Type: Progress Notes Filed: 12/24/2022 7:02 AM Note Text: Pre op labs [facility] 12-24-2022 History of Present illness Narrative Pre op labs documented in this encounter [facility] 12-23-[address] Markham Please convey following She may take up to 150 mg BID of flecainide. WIll tentatively request cardioverison for Tuesday - if she returns to sinus can cancel. Thanks I called and notified the pt of the above instructions, she will call us back if she converts back to NSR. The pt is calling. Pre her cardio mobile she is in A-Fib and she has been since Tuesday. She is symptomatic with it, she can fee her heart racing and has some sob. if she is just sitting it is manageable but when she tried to do anything it seems to ramp up . She takes Flecainide 100 mg one tablet twice a day and Atenolol 25 mg one every evening. She did take an extra Atenolol this morning, states you are aware she normally only takes one every evening although the sig has her taking one pill twice a day. In the past you have had her increase her Flecainide and she normally converts after being on a higher dose. Please advise. You may call her back at her home number and may leave a detailed message. Please do not send the response via my chart. Please route your response back to P [facility] CARD NURSE POOL documented in this encounter [facility] 07-29-2022 Miscellaneous Notes Appt canceled Patient calling stating that she needed to cancel her upcoming follow up appt due to watching her grandkids. She stated that she was not aware of this appt. She stated that she did not have the procedure and wonders if it was in relation for follow up from that. She would like to be advised if she should still make a follow up appt Please advise documented in this encounter [facility] 07-14-2022 Miscellaneous Notes I reviewed the message Recommendation: We have given instructions with previous phone call Patient refuses a cardioversion from previous notes If she willing to have then please schedule thank you Edelmira Ordonez APRN.PATIENT SAFETY ATTENDANT HR just getting out of shower is 180.Wanting to know if she could get a cardioversion soon? Please advise documented in this encounter [facility] 07-12-2022 Miscellaneous Notes Patient has a kardia moble machine and has been taking the atenolol twice a day since last Tuesday. She has been in rhytum and feeling good. documented in this encounter [facility] 07-12-2022 Miscellaneous Notes Images from the original note were not included. Tayler Barboza MD You; Avw Card Nurse 16 hours ago (3:03 PM) Agree Please call pt and notify that her ECG shows AFL. Advise: 1. Cardioversion - if agrees and confirms no missed doses of anticoagulant then please forward request for DCC only via Kathryn/Cathy 2. Increase flecainide 100 mg BID, continue atenolol current dose 3. Consider catheter ablation (earliest available is October) Thx C please see recommendations above I will also send message to hardwood sawyer unclear how patient takes flecainide 50mg BID out of a flecainide 150mg tablet. Please clarify with patient first what dose of tablet she has of flecainide thank you Edelmira Ordonez APRN.PATIENT SAFETY ATTENDANT Reviewed the message ECG ordered placed already and completed illustrates atrial flutter I suspect she will be scheduled for a cardioversion Thank you Edelmira Ordonez APRN.PATIENT SAFETY ATTENDANT Order pended Dr. Markham patient on tambocor Ese Estrada called today. : 1960 Allergies: Penicillins (home) [phone] (cell) Reason for call: Patient is calling in asking for a EKG order to be placed so that she can have it done at the [facility]. Please call her when placed. Patient last appointment: Visit date not found The patients preferred pharmacy has been captured for this encounter? no Zora New documented in this encounter [facility] 07-09-2022 Note HNO ID: [id number] Author: Alis Rodriguez MD Service: ? Author Type: Physician Type: Progress Notes Filed: 07/09/2022 2:26 PM Note Text: I have communicated my name and active licensure. The patient's identity and physical location were verified at the time of this visit. Either the patient or their legal sales representative printing supplies has been informed of the risks and benefits of -- and alternatives to -- treatment through a remote evaluation and consents to proceed with the evaluation remotely. 61yo WF with h/o hypothyroidism, A fib s/p cardioversion x 2, here for f/u On 10/21/20 changed [place] Thyroid 90mg/d to LT4 125mcg/d due to concerns about potential to worsen arrhythmia. On 12/25/20 decreased LT4 from 125mcg/d to 100mcg/d, then increased to 7.5x/week on 04/17/21. Doing ok overall. Went into A fib last week so waiting to here back from EP about any changes in medication. Takes LT4 inappropriately/inconsistently: No Energy loss: No Sleep disturbances: No Appetite change: No Wt change: No BM irregularities: No, has some constipation a month ago, did a liquid diet for a couple days which helped Temp intolerance: hot and cold the last couple days Skin changes: No Hair changes: No Tremor: No Palpitations: has been having more palpitations, not a lot but some Exposure to contrast, kelp, supplements, MVI, Biotin: No Neck pain/swelling: No Dysphagia: No Dyspnea: No Voice change: No All other Review of Systems reviewed and are negative. PAST MEDICAL HISTORY Diagnosis Date Hypothyroidism Mitral valve prolapse rheumatic fever as child FAMILY HISTORY Problem Relation Age of Onset other (Lung cancer) Father Ischemic Heart Disease Mother 62 CABG Stroke Mother 58 Diabetes Mother Peripheral Artery Disease Mother S/p bilateral carotid endarterectomies Hypertension Mother other (hypothyroidism) Sister other (hypothyroidism) Brother Heart Attack Brother 59 S/p CABG Diabetes Brother Social History Tobacco Use Smoking status: Never Smokeless tobacco: Never Substance Use Topics Alcohol use: No Drug use: No apixaban (ELIQUIS) 5 mg tab(s), , Disp: , Rfl: levothyroxine (SYNTHROID) 100 mcg tablet, Take 1 tablet by mouth once daily. Plus an extra half tablet once a week (so total 7.5 tablets per week), Disp: 96 tablet, Rfl: 3 atenolol (TENORMIN) 25 mg tablet, TAKE 1 TABLET TWICE A DAY, Disp: 180 tablet, Rfl: 3 flecainide (TAMBOCOR) 150 mg tablet, TAKE 1 TABLET TWICE A DAY (Patient taking differently: 50 mg twice daily.), Disp: 180 tablet, Rfl: 3 Lactobacillus acidophilus (PROBIOTIC) 10 billion cell cap, Take 1 capsule by mouth once daily., Disp: , Rfl: glucosamine HCl/chondroitin melendrez (GLUCOSAMINE-CHONDROITIN ORAL), Take 1 tablet by mouth once daily., Disp: , Rfl: CALCIUM ACETATE ORAL, Take by mouth., Disp: , Rfl: cranberry fruit extract (CRANBERRY EXTRACT ORAL), Take by mouth., Disp: , Rfl: estradiol (ESTRACE) 1 mg tablet, Take 1 mg by mouth once daily., Disp: , Rfl: PE: There were no vitals taken for this visit. Last 3 Encounter Wt Readings: Date: Wt: 04/15/2022 95.7 kg (211 lb) 05/14/2021 93.4 kg (206 lb) 03/25/2021 91.6 kg (202 lb) Gen - NAD, comfortable, pleasant Eyes - No exophthalmos, No mary-orbital edema Neck - No visible goiter or nodules Skin - No visible skin dryness, no thinning or loss of lateral eyebrow hair Neuro - No visible hand tremor, alert/oriented and answering questions appropriately Component Latest Ref Rng AND Units 04/08/2021 06/17/2021 01/20/2022 TSH 0.270 - 4.200 mIU/L 4.630 (H) 1.020 2.400 Free T4 0.9 - 1.7 ng/dL 1.5 1.5 Free T3 2.3 - 4.1 pg/mL 2.5 Diagnoses and all orders for this visit: Other specified hypothyroidism -clinically euthyroid though recently back in A fib -check TFTs to monitor control, if normal would continue LT4 at same dose -once TSH normal and stable, can have TSH monitored once yearly which can be done by PCP, along with future LT4 refills - TSH BLD; Future - T4 FREE/FREE THYROX; Future F/u prn The assessment and benefits/risks of the plan were discussed with the patient who expressed understanding and was agreeable to that which is noted above. All documentation from previous visit was copied and pasted, documentation has been reviewed and edited as necessary for today's visit. [facility] 07-09-2022 Nurse Note EKG performed as ordered. Electronically sent to [facility] main. Placed paper copy in scan folder. Dm Schaeffer documented in this encounter [facility] 07-05-2022 Miscellaneous Notes Routing messages to Dr. Markham for review in other encounter. documented in this encounter [facility] 06-22-2022 Miscellaneous Notes Requester: Patient Patients last Endocrinology visit occurred 04-17-21. Follow-up evaluation has been established 07-23-22. Requested Prescriptions Pending Prescriptions Disp Refills levothyroxine (SYNTHROID) 100 mcg tablet 96 tablet 3 Sig: Take 1 tablet by mouth once daily. Plus an extra half tablet once a week (so total 7.5 tablets per week) TSH Date Value Ref Range Status 01/20/2022 2.400 0.270 - 4.200 mIU/L Final If patient is due for an appointment please route to provider for refill consideration and also to the endo scheduling pool. PSS NOTE: Patient needs scheduled appointment No documented in this encounter [facility] 04-27-2022 Miscellaneous Notes The following approved medication requests have been transmitted electronically. Requested Prescriptions Signed Prescriptions Disp Refills atenolol (TENORMIN) 25 mg tablet 180 tablet 3 Sig: TAKE 1 TABLET TWICE A DAY Authorizing Provider: TAYLER BA Ordering User: LEXUS CRAIN flecainide (TAMBOCOR) 150 mg tablet 180 tablet 3 Sig: TAKE 1 TABLET TWICE A DAY Authorizing Provider: TAYLER BA Ordering User: LEXUS CRAIN APRN.CNP Received request for refill of the following medications: Requested Prescriptions Pending Prescriptions Disp Refills atenolol (TENORMIN) 25 mg tablet [Pharmacy Med Name: ATENOLOL TAB 25MG] 180 tablet 3 Sig: TAKE 1 TABLET TWICE A DAY flecainide (TAMBOCOR) 150 mg tablet [Pharmacy Med Name: FLECAINIDE TAB 150MG] 180 tablet 3 Sig: TAKE 1 TABLET TWICE A DAY Patient requested a 90 day refill. Pharmacy verified and updated accordingly. Patient was last seen in cardiology office: 04/15/2022 Dr. Markham. Upcoming appointment scheduled: none. Labs: Hemoglobin (g/dL) Date Value 04/08/2021 13.3 Hematocrit (%) Date Value 04/08/2021 42.7 WBC (k/uL) Date Value 04/08/2021 8.99 Platelet Count (k/uL) Date Value 04/08/2021 322 Creatinine Date Value Ref Range Status 04/08/2021 0.87 0.58 - 0.96 mg/dL Final 09/05/2020 0.76 0.70 - 1.40 mg/dL Final documented in this encounter [facility] 04-15-2022 Note HNO ID: [id number] Author: Tayler Barboza MD Service: ? Author Type: Physician Type: Progress Notes Filed: 04/23/2022 2:02 PM Note Text: [facility] Department of Cardiovascular Medicine SECTION OF CARDIAC PACING and ELECTROPHYSIOLOGY OUTPATIENT VISIT DATE May 14, 2021 OUTPATIENT VISIT TYPE ESTABLISHED PRIMARY CARE PHYSICIAN: Annie Menjivar MD [facility] [place] [address] REFERRING PHYSICIAN: Tayler Barboza [id number] [address] [facility] [id number] CHIEF COMPLAINT: Previously persistent atrial fibrillation; flecainide therapy with paroxysmal course HISTORY OF PRESENT ILLNESS: Ms. Estrada is a year old female who presents today for follow-up visit/ She continues to report minimal burden of atrial fibrillation, as gauged by symptoms as well as monitoring using her cardia mobile device. She continues to take flecainide 150 mg and atenolol 25 mg twice daily. States there was a 1 week. When she inadvertently missed dosing for both of these medications. States she felt quite well during that time, and is wondering if we can taper back on the dosages. She denies chest pain, shortness of breath, orthopnea, cough, edema, palpitations, PND, lightheadedness or syncope. PAST CARDIAC HISTORY: PAST MEDICAL HISTORY Diagnosis Date Hypothyroidism Mitral valve prolapse rheumatic fever as child PAST SURGICAL HISTORY Procedure Laterality Date APPENDECTOMY PAST SURGICAL HISTORY OF 2 c-sections TONSILLECTOMY HX SOCIAL HISTORY Social History Tobacco Use Smoking status: Never Smokeless tobacco: Never Substance Use Topics Alcohol use: No Drug use: No FAMILY HISTORY Problem Relation Age of Onset other (Lung cancer) Father Ischemic Heart Disease Mother 62 CABG Stroke Mother 58 Diabetes Mother Peripheral Artery Disease Mother S/p bilateral carotid endarterectomies Hypertension Mother other (hypothyroidism) Sister other (hypothyroidism) Brother Heart Attack Brother 59 S/p CABG Diabetes Brother ALLERGIES: ALLERGIES Allergen Reactions Penicillins Rash MEDICATIONS: atenolol (TENORMIN) 25 mg tablet Take 1 tablet by mouth twice daily. rivaroxaban (XARELTO) 20 mg tablet Take 1 tablet by mouth once daily. flecainide (TAMBOCOR) 150 mg tablet Take 1 tablet by mouth twice daily. levothyroxine (SYNTHROID) 100 mcg tablet Take 1 tablet by mouth once daily. Plus an extra half tablet once a week (so total 7.5 tablets per week) Lactobacillus acidophilus (PROBIOTIC) 10 billion cell cap Take 1 capsule by mouth once daily. ZINC ORAL Take 50 mg by mouth once daily. MAGNESIUM ORAL Take 400 mg by mouth once daily. glucosamine HCl/chondroitin melendrez (GLUCOSAMINE-CHONDROITIN ORAL) Take 1 tablet by mouth once daily. vitamin B complex (B COMPLEX ORAL) Take by mouth. CALCIUM ACETATE ORAL Take by mouth. cranberry fruit extract (CRANBERRY EXTRACT ORAL) Take by mouth. iron bis-glycinat/vit C/FA/B12 (GENTLE IRON ORAL) Take by mouth. estradiol (ESTRACE) 1 mg tablet Take 1 mg by mouth once daily. REVIEW OF SYSTEMS: GENERAL: Negative for: Weight loss or gain, Fever or Chills, Weakness and Sleep difficulties. HEENT: Negative for: Headache, Impaired Vision, Glasses, Hearing Impairment, Ringing in Ears, Nosebleeds, Poor dental care, Bleeding Gums, Dentures NECK: Negative for: Swelling, Pain, Stiffness RESPIRATORY: Negative for: Cough, Blood in Sputum, Shortness of breath, Wheezing, Apnea GASTROINTESTINAL: Negative for: Trouble swallowing, Heartburn, Change in bowel habits, Blood in stool, Dark black stools MUSCULOSKELETAL: Negative for: Muscle or joint pain, Stiffness , Joint swelling NEUROLOGIC/PSYCHIATRIC: Negative for: Weakness, Paralysis, Numbness, Tingling, Tremor, Nervousness, Depressed mood, Memory loss SKIN: Negative for: Rashes, Itching HEMATOLOGICAL/LYMPHATIC: Negative for: Easy bruising , Easy bleeding ENDOCRINE: Negative for: Heat or cold intolerance, Excessive sweating, Frequent urination, Frequent thirst PHYSICAL EXAMINATION: BP 148/68 Pulse (!) 58 Ht 160 cm (5' 3 ) Wt 95.7 kg (211 lb) BMI 37.38 kg/m? General: Well appearing, in no acute distress. Skin: No clubbing, no cyanosis. Eyes: Extra ocular movements intact Oropharynx: Teeth in good repair. Neck: No jugular venous distention, no carotid bruits, carotids have a normal upstroke, no palpable thyromegaly. Lungs: Clear to auscultation bilaterally, no wheezing or rhonchi. Heart: Regular rhythm, PMI not displaced, S1, S2 normal, no S3, no S4, no heaves, no rub and no murmur. Abdomen: Soft, nontender, bowel sounds normal, no palpable organomegaly, no bruits. Extremities: No peripheral edema . Grade 2/4 distal pulses bilaterally. Neuro: Oriented to person, place and time, alert, cooperative, gait coordinated. CARDIOVASCULAR MEDICINE TESTING (more content not included)... [facility] 04-15-2022 Instructions Tayler Barboza MD - 04/15/2022 1:20 PM EST REduce flecainide 75 mg twice daily Reduce atenolol 25 mg daily In 2-3 weeks IF AF remains suppressed, can stop flecainide and maintain atenolol at 25 mg daily If recurrent AF, can either resume flecianide or consider ablation documented in this encounter [facility] 04-15-2022 History of Present illness Narrative Images from the original note were not included. [facility] Department of Cardiovascular Medicine SECTION OF CARDIAC PACING and ELECTROPHYSIOLOGY OUTPATIENT VISIT DATE May 14, 2021 OUTPATIENT VISIT TYPE ESTABLISHED PRIMARY CARE PHYSICIAN: Annie Menjivar MD [address] [place] [address] REFERRING PHYSICIAN: Tayler Barboza [id number] [address] [facility] [id number] CHIEF COMPLAINT: Previously persistent atrial fibrillation; flecainide therapy with paroxysmal course HISTORY OF PRESENT ILLNESS: Ms. Estrada is a year old female who presents today for follow-up visit/ She continues to report minimal burden of atrial fibrillation, as gauged by symptoms as well as monitoring using her cardia mobile device. She continues to take flecainide 150 mg and atenolol 25 mg twice daily. States there was a 1 week. When she inadvertently missed dosing for both of these medications. States she felt quite well during that time, and is wondering if we can taper back on the dosages. She denies chest pain, shortness of breath, orthopnea, cough, edema, palpitations, PND, lightheadedness or syncope. PAST CARDIAC HISTORY: PAST MEDICAL HISTORY Diagnosis Date Hypothyroidism Mitral valve prolapse rheumatic fever as child PAST SURGICAL HISTORY Procedure Laterality Date APPENDECTOMY PAST SURGICAL HISTORY OF 2 c-sections TONSILLECTOMY HX SOCIAL HISTORY Social History Tobacco Use Smoking status: Never Smokeless tobacco: Never Substance Use Topics Alcohol use: No Drug use: No FAMILY HISTORY Problem Relation Age of Onset other (Lung cancer) Father Ischemic Heart Disease Mother 62 CABG Stroke Mother 58 Diabetes Mother Peripheral Artery Disease Mother S/p bilateral carotid endarterectomies Hypertension Mother other (hypothyroidism) Sister other (hypothyroidism) Brother Heart Attack Brother 59 S/p CABG Diabetes Brother ALLERGIES: ALLERGIES Allergen Reactions Penicillins Rash MEDICATIONS: atenolol (TENORMIN) 25 mg tablet Take 1 tablet by mouth twice daily. rivaroxaban (XARELTO) 20 mg tablet Take 1 tablet by mouth once daily. flecainide (TAMBOCOR) 150 mg tablet Take 1 tablet by mouth twice daily. levothyroxine (SYNTHROID) 100 mcg tablet Take 1 tablet by mouth once daily. Plus an extra half tablet once a week (so total 7.5 tablets per week) Lactobacillus acidophilus (PROBIOTIC) 10 billion cell cap Take 1 capsule by mouth once daily. ZINC ORAL Take 50 mg by mouth once daily. MAGNESIUM ORAL Take 400 mg by mouth once daily. glucosamine HCl/chondroitin melendrez (GLUCOSAMINE-CHONDROITIN ORAL) Take 1 tablet by mouth once daily. vitamin B complex (B COMPLEX ORAL) Take by mouth. CALCIUM ACETATE ORAL Take by mouth. cranberry fruit extract (CRANBERRY EXTRACT ORAL) Take by mouth. iron bis-glycinat/vit C/FA/B12 (GENTLE IRON ORAL) Take by mouth. estradiol (ESTRACE) 1 mg tablet Take 1 mg by mouth once daily. REVIEW OF SYSTEMS: GENERAL: Negative for: Weight loss or gain, Fever or Chills, Weakness and Sleep difficulties. HEENT: Negative for: Headache, Impaired Vision, Glasses, Hearing Impairment, Ringing in Ears, Nosebleeds, Poor dental care, Bleeding Gums, Dentures NECK: Negative for: Swelling, Pain, Stiffness RESPIRATORY: Negative for: Cough, Blood in Sputum, Shortness of breath, Wheezing, Apnea GASTROINTESTINAL: Negative for: Trouble swallowing, Heartburn, Change in bowel habits, Blood in stool, Dark black stools MUSCULOSKELETAL: Negative for: Muscle or joint pain, Stiffness , Joint swelling NEUROLOGIC/PSYCHIATRIC: Negative for: Weakness, Paralysis, Numbness, Tingling, Tremor, Nervousness, Depressed mood, Memory loss SKIN: Negative for: Rashes, Itching HEMATOLOGICAL/LYMPHATIC: Negative for: Easy bruising , Easy bleeding ENDOCRINE: Negative for: Heat or cold intolerance, Excessive sweating, Frequent urination, Frequent thirst PHYSICAL EXAMINATION: BP 148/68 Pulse (!) 58 Ht 160 cm (5' 3 ) Wt 95.7 kg (211 lb) BMI 37.38 kg/m General: Well appearing, in no acute distress. Skin: No clubbing, no cyanosis. Eyes: Extra ocular movements intact Oropharynx: Teeth in good repair. Neck: No jugular venous distention, no carotid bruits, carotids have a normal upstroke, no palpable thyromegaly. Lungs: Clear to auscultation bilaterally, no wheezing or rhonchi. Heart: Regular rhythm, PMI not displaced, S1, S2 normal, no S3, no S4, no heaves, no rub and no murmur. Abdomen: Soft, nontender, bowel sounds normal, no palpable organomegaly, no bruits. Extremities: No peripheral edema . Grade 2/4 distal pulses bilaterally. Neuro: Oriented to person, place and time, alert, cooperative, gait coordinated. CARDIOVASCULAR MEDICINE TESTING: Electrocardiogram normal sinus rhythm 58 bpm, first-degree AV block Labs: Sleep Study 07-07-2020: IMPRESSION/RECOMMENDATIONS: 1. No significant sleep related breathing disorder is present on this study. The apnea-hypopnea index (AHI) is within normal limits and significant oxygen desaturations did not occur. oxygen robert was 93%. This apnea-hypopnea index (AHI) may be underestimated due to the absence of recorded REM supine sleep. 2. If sleep apnea is strongly suspected, a repeat PSG may be indicated given night to night variability in sleep apnea and the possibility of a false negative study. 3. Split-night protocol was not met due to low apnea-hypopnea index (AHI). 4. Abnormal sleep architecture likely due to first night effect. I have personally reviewed the Electrocardiogram. Assessment IMPRESSION: Ms. Estrada is a delightful and high functioning 62 year old female with obesity (BMI 35), treated hypothyroidism, a structurally normal heart, familial history of atrial fibrillation occurring in young first-degree relatives --who was diagnosed with atrial fibrillation on May 2020. She describes symptoms of decreased exercise tolerance and easy fatigue, which I do believe are manifestations of AF with RVR. In retrospect, we suspect that atrial fibrillation onset dated back to March 2020. To date she has undergone electrical cardioversion twice in 2020, in June and again in August. She is currently taking flecainide 150 mg twice daily along with atenolol 25 mg twice daily. In general, she reports an overall low burden of atrial fibrillation. Previously she was scheduled to undergo catheter ablation, but however due to COVID circumstances, her procedure was canceled. And she elected thereafter to hold off on invasive therapies. At this time, she would like to begin tapering doses of flecainide plus or atenolol --- and I do suspect we will see some improvement in symptoms/side effects. Beginning today she will reduce flecainide to 75 mg twice daily, and cut atenolol to 25 mg once a day. We will monitor her burden of atrial fibrillation. And she may even cut out flecainide altogether if she continues to have arrhythmia suppression/dormancy. If alternatively, we see a resurgence in AF burden, she will likely reevaluate and reconsider the option of catheter ablation. Follow-up with EP team (Sera or Natacha) in 12 months Tayler Barboza MD Electrophysiology staff pager [phone] April 15, 2022 1:28 PM documented in this encounter [facility] 04-08-2021 History of Present illness Narrative Radiology Service Progress Note PATIENT NAME: Ese Estrada DATE OF SERVICE: April 08, 2021 TIME: 11:27 AM PATIENT IDENTITY VERIFICATION COMPLETED USING TWO (2) IDENTIFIERS: Name and Date of confirmed by patient verbally. FALL SCREENING: Has the patient had 2 falls in the last year or 1 fall with injury or currently using an Ambulatory Assistive Device (Walker, Cane, Wheelchair, Crutches, etc.)? No PATIENT GENDER DATA: Female. status: : No status: NO. PATIENT RELEVANT IMPLANT DATA REVIEWED: Not Applicable RADIOLOGY DEPARTMENT: General X-ray: Exam(s) Completed: Chest X-Ray PERIPHERAL IV DATA: Not applicable SIGNED BY: RT Sunshine(R) April 08, 2021 11:27 AM documented in this encounter [facility] 12-31-2020 History of Present illness Narrative Patient is here for cardiovascular evaluation for atrial fibrillation. Patient report history of atrial fibrillation over the last 2 years. She was evaluated at the [facility]. Her noninvasive assessment including an echocardiogram appears reassuring. Patient underwent cardioversion on 2 prior occasion. Her atrial fibrillation was treated with flecainide and low-dose atenolol. She was advised by her shipwright helper at [facility] to increase flecainide temporarily to 150 and then to decrease it back to 100 mg. She had done that over the last 4 months and had 2 episodes of breakthrough arrhythmia. The patient was advised to have an ablation but the patient is reluctant. She has been started recently on anticoagulation. Her CHADS2 vascular score is 1. Patient reports symptoms suspicious of sleep apnea. She is Functional class I. She denies chest pain or lightheadedness.Assessment1. Persistent recurrent atrial fibrillation treated with flecainide 100 mg twice daily but this was just increased 250 twice daily due to recurrence2. Mild sinus bradycardia to flecainide and atenolol3. Obesity4. Probable sleep apnea based on symptoms5. No history of coronary artery disease, LV systolic dysfunction or valvular abnormalityPlan1. I advised the patient to continue flecainide 150 twice daily but advised her to reduce atenolol to 25 once daily2. We discussed at great length the natural history of atrial fibrillation. If continue to have breakthrough arrhythmia next step would be trial of Rythmol or ablation3. I counseled her regarding the link between atrial fibrillation, obesity and sleep apnea4. I recommended outpatient sleep evaluation5. We discussed anticoagulation at length. I told her for the near future we will stay with Eliquis however if she had stable rhythm in the next 3 to 6 months we may consider switching to aspirin considering low CHADS2 vascular score6 I advised her to notify me change in cardiac status or symptoms [facility] Work Phone: 09-05-2020 Note HNO ID: [id number] Author: Tayler Barboza MD Service: Electrophysiology Author Type: Physician Type: Procedures Filed: 09/05/2020 12:14 PM Note Text: PROCEDURE NOTE: CARDIOVERSION The risks, benefits, alternatives, and personnel discussed with patient or sales representative printing supplies who consents to the procedure. UNIVERSAL PROTOCOL / SAFETY CHECKLIST: Procedure to be performed: DC cardioversion. Sign in Communication: Completed. Time Out: Team Confirms the Correct Patient, Correct Procedure, Correct Site and Site Marking, Correct Position (if applicable). Time: 1200. Affirmation of Time Out: YES. Sign Out Discussion: Completed. Pre-operative diagnosis: persistent AF Post-operative diagnosis: same Procedure type: DC cardioversion Staff: Tayler Marcano MD Brief History: ?Close ?is a delightful and high functioning?60 year old female?with obesity (BMI 35), treated hypothyroidism, a structurally normal heart,?familial history of atrial fibrillation occurring in young first-degree relatives?--who was diagnosed with atrial fibrillation on May 12. ?She describes symptoms of decreased exercise tolerance and easy fatigue,?which I do believe are manifestations of AF with RVR.??In retrospect, we suspect that atrial fibrillation onset dated back to March 2020.?? At the present in spite of What appears to be uncontrolled ventricular rates,?there is no signs nor symptoms of congestive heart failure. ?Echocardiogram back in May showed normal EF and LV size. In June of this year, she underwent successful electrical cardioversion. Sinus rhythm was maintained for approximately 3 months, during which time she noted significant improvement in symptoms. A. fib recurred approximately a week ago, even with flecainide loading, she has remained out of rhythm. Again exhibits a mild RVR. I do recommend we continue efforts of rhythm control, and we will facilitate electrical cardioversion hopefully tomorrow. For now we will maintain flecainide but increase to 150 mg BID. I briefly discussed escalating efforts to either catheter ablation or switch to a class III antiarrhythmic drug if we see early recurrence after cardioversion ? The patient was placed on a monitor and supplemental oxygen. Adjunct airway equipment, suction and other necessary items were prepared. The patient was sedated with iv brevital. Following sedation patient was cardioverted at 200 with conversion to normal sinus rhythm. A post conversion EKG was completed. The patient tolerated the procedure well. Assessment: successful DCC Plan/Recommendations: increase flecainide 150 mg BID Medication changes: as above Appointment: 1 week Tayler Barboza MD Electrophysiology staff pager [phone] September 05, 2020 12:07 PM [facility] 06-11-2020 Note HNO ID: [id number] Author: Tayler Barboza MD Service: Electrophysiology Author Type: Physician Type: Procedures Filed: 06/11/2020 7:43 AM Note Text: PROCEDURE NOTE: CARDIOVERSION The risks, benefits, alternatives, and personnel discussed with patient or sales representative printing supplies who consents to the procedure. UNIVERSAL PROTOCOL / SAFETY CHECKLIST: Procedure to be performed: DC cardioversion. Sign in Communication: Completed. Time Out: Team Confirms the Correct Patient, Correct Procedure, Correct Site and Site Marking, Correct Position (if applicable). Time: 745. Affirmation of Time Out: YES. Sign Out Discussion: Completed. Pre-operative diagnosis: AFib persistent Post-operative diagnosis: same Procedure type: DC cardioversion Staff: Tayler Marcano MD Brief History: Ms. Estrada is a delightful and high functioning 60 year old female with obesity (BMI 35), treated hypothyroidism, a structurally normal heart, familial history of atrial fibrillation occurring in young first-degree relatives --who was diagnosed with atrial fibrillation on May 12. She describes symptoms of decreased exercise tolerance and easy fatigue, which I do believe are manifestations of AF with RVR. In retrospect, we suspect that atrial fibrillation onset dated back to March 2020. At the present in spite of What appears to be uncontrolled ventricular rates, there is no signs nor symptoms of congestive heart failure. Echocardiogram back in May showed normal EF and LV size. I provided Ese a prescription for atenolol 25 mg twice daily with instructions to take as prescribed, then after mandaen of sinus rhythm to cut back to 25 mg once daily. We will facilitate a timely electrical cardioversion The patient was placed on a monitor and supplemental oxygen. Adjunct airway equipment, suction and other necessary items were prepared. The patient was sedated with iv brevital. Following sedation patient was cardioverted at 200 with conversion to normal sinus rhythm. A post conversion EKG was completed. The patient tolerated the procedure well. Assessment: successful DCC Plan/Recommendations: resume current meds Medication changes: none Appointment: 1 week and 3 months Tayler Barboza MD Electrophysiology staff pager [phone] June 11, 2020 7:42 AM [facility] Chief complaint Narrative - Reported ESE ESTRADA is being seen for an initial evaluation of atrial fibrillation. -[facility] [email or web address] DO Work Phone: Evaluation note Diagnosis Persistent atrial fibrillation (HCC)- Primary Atrial fibrillation Encounter for monitoring flecainide therapy Encounter for therapeutic drug monitoring [facility] Palpitations Persistent atrial fibrillation (HCC) Atrial [facility] Other specified hypothyroidism [facility] Diagnosis High risk medication use- Primary Encounter for long-term (current) use of other medications Persistent atrial fibrillation (HCC) Atrial fibrillation [facility] Diagnosis High risk medication use- Primary Encounter for long-term (current) use of other medications Persistent atrial fibrillation (HCC) Atrial fibrillation Atrial flutter, unspecified type (HCC) [I48.92 (ICD-10-CM)] [facility] Diagnosis Paroxysmal atrial fibrillation (HCC) [I48.0 (ICD-10-CM)]- Primary Atrial fibrillation Atrial fibrillation, unspecified type (HCC) [facility] Diagnosis Preoperative cardiovascular examination Pre-operative cardiovascular examination documented in this encounter [facility] note* Diagnosis Palpitations- Primary Atrial fibrillation, unspecified type (HCC) documented in this encounter [facility] note* Diagnosis Other specified hypothyroidism documented in this encounter [facility] note* Diagnosis Persistent atrial fibrillation (CMS/HCC)- Primary Atrial fibrillation Anticoagulated Encounter for long-term (current) use of anticoagulants BMI 37.0-37.9, adult Obstructive sleep apnea syndrome Obstructive sleep apnea (adult) (pediatric) Never smoked cigarettes documented in this encounter [facility] Work Phone: Reason for referral (narrative)* Outpatient Procedure (Routine) - Pending Review Specialty Diagnoses / Procedures Referred By Contac t Referred To [facility] Diagnoses High risk medication use Persistent atrial fibrillation (HCC) Procedures ECG COMPLETE ECG ROUTINE ECG W/LEAST 12 LDS W/I&[place] [address] [place] [address] [facility] [address] [address] Referral ID Status Reason Start Date Expiration Date Visits Requested Visits Authorized [id number] Pending Review Auto-Generat ed Referral 07/09/2022 07/09/2023 1 1 [facility] Summary Purpose Family History No Family History Records FoundUnknown Family Member Name Dates Details Stroke syndrome: Mother Status:Active Family history of congestive heart failure: Mother(V17.49, Z82.49) Status:Active Family history of hyperthyro idism: Mother(V18.19, Z83.49) Status:Active Family history of lung cance r: Father(V16.1, Z80.1) Status:Active Family history of diabetes m ellitus: Mother, Brother(V18.0, Z83.3) Status:Active Family history of hypothyroi dism: Sister, Brother(V18.19, Z83.49) Status:Active Hypertension, benign: Sister , Brother Status:Active Family history of lymphoma: Sister(V16.7, Z80.7) Status:Active Family history of CABG: Brot her(V17.49, Z82.49) Status:Active Family history of myocardial infarction: Brother(V17.3, Z82.49) Status:Active Family history of atrial fib rillation: Brother(V17.49, Z82.49) Status:Active Advance Directives No Advanced Directives Records FoundNo Advanced Directives Records FoundNo Advanced Directives Records FoundNo Advanced Directives Records FoundNo Advanced Directives Records FoundNo Advanced Directives Records FoundNo Advanced Directives Records FoundNo Advanced Directives Records FoundNo Advanced Directives Records Found Reason for Referral Specialty Diagnoses / Procedures Referred By Contac t Referred To Contact Diagnoses Persistent atrial fibrillation (CMS/HCC) Procedures ECG 12 Lead Carie Negron MD [address] [place] [address] [address], [address] [address] Referral ID Status Reason Start Date Expiration Date V isits Requested Visits Authorized [id number] Authorized 07/19/2023 07/18/2024 1 1 Specialty Diagnoses / Procedures Referred By Contac t Referred To Contact Cardiology Diagnoses Persistent atrial fibrillation (CMS/HCC) Procedures Follow Up In Cardiology Carie Negron MD [address] [facility] 2, [address] [address] Carie Negron MD [address] [facility] 2, [address] [address] Referral ID Status Reason Start Date Expiration Date V isits Requested Visits Authorized [id number] Authorized 07/19/2023 07/18/2024 1 1 Additional Source Comments INFORMATION SOURCE (unrecogn ized section and content) DATE CREATED AUTHOR 09/07/2020 [facility] DATE CREATED AUTHOR AUTHOR'S ORGANIZ ATION 12/30/2020 [facility] DATE CREATED AUTHOR AUTHOR'S ORGANIZ ATION 06/03/2021 [facility] DATE CREATED AUTHOR AUTHOR'S ORGANIZ ATION 09/05/2021 [facility] [place] [facility] DATE CREATED AUTHOR AUTHOR'S ORGANIZ ATION 12/31/2022 [facility] DATE CREATED AUTHOR AUTHOR'S ORGANIZ ATION 12/31/2022 [employer] DATE CREATED AUTHOR AUTHOR'S ORGANIZ ATION 03/01/2023 [facility] DATE CREATED AUTHOR AUTHOR'S ORGANIZ ATION 03/13/2023 [facility] dical [facility] DATE CREATED AUTHOR AUTHOR'S ORGANIZ ATION 07/20/2023 [facility] Ambulatory Source Comments (unrecognize d section and content) In the event this informatio n is protected by the Federal Confidentiality of Alcohol and Drug Abuse Patient Records regulations: The Federal rules restrict any use of the information to criminally investigate or prosecute any alcohol or drug abuse patient.[facility] the event this information is protected by the Federal Confidentiality of Alcohol and Drug Abuse Patient Records regulations: The Federal rules restrict any use of the information to criminally investigate or prosecute any alcohol or drug abuse patient.[facility] the event this information is protected by the Federal Confidentiality of Alcohol and Drug Abuse Patient Records regulations: The Federal rules restrict any use of the information to criminally investigate or prosecute any alcohol or drug abuse patient.[facility] the event this information is protected by the Federal Confidentiality of Alcohol and Drug Abuse Patient Records regulations: The Federal rules restrict any use of the information to criminally investigate or prosecute any alcohol or drug abuse patient.[facility] the event this information is protected by the Federal Confidentiality of Alcohol and Drug Abuse Patient Records regulations: The Federal rules restrict any use of the information to criminally investigate or prosecute any alcohol or drug abuse patient.[facility] the event this information is protected by the Federal Confidentiality of Alcohol and Drug Abuse Patient Records regulations: The Federal rules restrict any use of the information to criminally investigate or prosecute any alcohol or drug abuse patient.[facility] the event this information is protected by the Federal Confidentiality of Alcohol and Drug Abuse Patient Records regulations: The Federal rules restrict any use of the information to criminally investigate or prosecute any alcohol or drug abuse patient.[facility] the event this information is protected by the Federal Confidentiality of Alcohol and Drug Abuse Patient Records regulations: The Federal rules restrict any use of the information to criminally investigate or prosecute any alcohol or drug abuse patient.[facility] the event this information is protected by the Federal Confidentiality of Alcohol and Drug Abuse Patient Records regulations: The Federal rules restrict any use of the information to criminally investigate or prosecute any alcohol or drug abuse patient.[facility] the event this information is protected by the Federal Confidentiality of Alcohol and Drug Abuse Patient Records regulations: The Federal rules restrict any use of the information to criminally investigate or prosecute any alcohol or drug abuse patient.[facility] the event this information is protected by the Federal Confidentiality of Alcohol and Drug Abuse Patient Records regulations: The Federal rules restrict any use of the information to criminally investigate or prosecute any alcohol or drug abuse patient.[facility] the event this information is protected by the Federal Confidentiality of Alcohol and Drug Abuse Patient Records regulations: The Federal rules restrict any use of the information to criminally investigate or prosecute any alcohol or drug abuse patient.[facility] the event this information is protected by the Federal Confidentiality of Alcohol and Drug Abuse Patient Records regulations: The Federal rules restrict any use of the information to criminally investigate or prosecute any alcohol or drug abuse patient.[facility] the event this information is protected by the Federal Confidentiality of Alcohol and Drug Abuse Patient Records regulations: The Federal rules restrict any use of the information to criminally investigate or prosecute any alcohol or drug abuse patient.[facility] the event this information is protected by the Federal Confidentiality of Alcohol and Drug Abuse Patient Records regulations: The Federal rules restrict any use of the information to criminally investigate or prosecute any alcohol or drug abuse patient.[facility] the event this information is protected by the Federal Confidentiality of Alcohol and Drug Abuse Patient Records regulations: The Federal rules restrict any use of the information to criminally investigate or prosecute any alcohol or drug abuse patient.[facility] Care Teams (unrecognized sec tion and content) [employer]ipe Fin[employer] Supervisor Relationship Specialty Start Date End Date Annie Menjivar MD PCP - General Family Practice 12/29/11 [employer] Fin[employer] Supervisor Relationship Specialty Start Date End Date Annie Menjivar MD PCP - General Family Medicine 12/29/11 [employer]ipe Finishing Supervisor Relationship Specialty Start Date End Date Annie Menjivar MD PCP - General Family Medicine 12/29/11 Pipe Finishing Supervisor Relationship Specialty Start Date End Date Annie Menjivar MD PCP - General Family Medicine 12/29/11 Pipe Finishing Supervisor Relationship Specialty Start Date End Date Annie Menjivar MD PCP - General Family Medicine 12/29/11 Pipe Finishing Supervisor Relationship Specialty Start Date End Date Annie Menjivar MD PCP - General Family Medicine 12/29/11 Pipe Finishing Supervisor Relationship Specialty Start Date End Date Annie Menjivar MD PCP - General Family Medicine 12/29/11 Pipe Finishing Supervisor Relationship Specialty Start Date End Date Annie Menjivar MD PCP - General Family Medicine 12/29/11 Pipe Finishing Supervisor Relationship Specialty Start Date End Date Annie Menjivar MD PCP - General Family Medicine 12/29/11 Pipe Finishing Supervisor Relationship Specialty Start Date End Date Annie Menjivar MD PCP - General Family Medicine 12/29/11 Pipe Finishing Supervisor Relationship Specialty Start Date End Date Annie Menjivar MD PCP - General Family Medicine 12/29/11 Pipe Finishing Supervisor Relationship Specialty Start Date End Date Annie Menjivar MD PCP - General Family Medicine 12/29/11 Pipe Finishing Supervisor Relationship Specialty Start Date End Date Annie Menjivar MD PCP - General Family Medicine 12/29/11 Pipe Finishing Supervisor Relationship Specialty Start Date End Date Annie Menjivar MD PCP - General Family Medicine 12/29/11 [employer]ipe Finishing Supervisor Relationship Specialty Start Date End Date Annie Menjivar MD [address] [facility] [place] [address] PCP - General Family Medicine 07/19/23 Carie Negron MD [address] [place] [address] 2, [address] [place] [address] Consulting Physician Cardiology 07/19/23 Reason for Visit (unrecogniz ed section and content) Reason Comments Cardiology Follow Up Reason Comments Refill Request Reason Onset Date Comments Refill Request 06/18/2022 Reason Comments Orders Results Reason Comments Patient Question Reason Comments Appointment Reason Comments Radiology XR Reason Comments A-fib Reason Comments Refill Request Synthroid Reason Comments Follow-up 6 months Specialty Diagnoses / Procedures Referred By Contac t Referred To Contact Diagnoses Persistent atrial fibrillation (CMS/[facility]) Procedures ECG 12 Lead Carie Negron MD [address] [facility] 2, [facility] [address] [place] [address] Referral ID Status Reason Start Date Expiration Date V isits Requested Visits Authorized [id number] Authorized 07/19/2023 07/18/2024 1 1 FOR RECORDS PERTAINING TO PATIENTS WHO ARE OR HAVE BEEN ENROLLED IN A CHEMICAL DEPENDENCY/SUBSTANCEABUSE PROGRAM, SOME INFORMATION MAY BE OMITTED. This clinical summary was aggregated from multiple sources. Caution should be exercised in using it in the provision of clinical care. This summary normalizes information from multiple sources, and as a consequence, information in this document may materially change the coding, format and clinical context of patient data. In addition, data may be omitted in some cases. CLINICAL DECISIONS SHOULD BE BASED ON THE PRIMARY CLINICAL RECORDS. [employer] provides no warranty or guarantee of the accuracy or completeness of information in this document.
[2023-08-16 15:23] LABS: Bilirubin Urine NEGATIVE (NEGATIVE); Blood Urine SMALL (NEGATIVE); Clarity Urine CLEAR (CLEAR); Color Urine LT. YELLOW (YELLOW); Glucose Urine UA NEGATIVE (NEGATIVE); Ketones Urine NEGATIVE (NEGATIVE); Leukocyte Esterase Urine NEGATIVE (NEGATIVE); Nitrite Urine NEGATIVE (NEGATIVE); Protein Urine NEGATIVE (NEG/TRACE); Specific Gravity Urine <=1.005 (1.005-1.025); Urobilinogen Urine 0.2 EU/dL (0.2-1.0)
[2023-08-16 15:52] LABS: Bacteria Urine NONE SEEN #/HPF (NONE SEEN); Cast Seen? NONE SEEN #/LPF (NONE SEEN); Crystals Seen? None Seen #/HPF (None Seen); Mucus Urine NONE SEEN (NONE SEEN); RBC Urine 0-2 #/HPF (0-2); Squamous Epithelial Cell Urine FEW #/LPF (NONE/RARE); WBC Urine 0-2 #/HPF (NONE SEEN)
== END 2023-08-16 15:03 | disposition home or self-care (01) ==
LOC: LAB 15:02
PROVIDERS: PCP Family Medicine; Visit Provider Family Medicine
DX: R10.2 Pelvic and perineal pain (principal)
CPT/HCPCS: 81001; 87086